=== PATIENT | male | born 1945 | race Caucasian/White ===

== ENCOUNTER 2019-04-03 14:26 | Inpatient (IN) ==
[2019-04-03] MEDS ORDERED: NS 500 ML IV ONE (14:46)
--- NOTE | 2019-04-03 14:52 | PROVIDER DOCUMENTATION ---
HPI-General Adult - General Chief Complaint: Nausea Stated Complaint: NAUSEA,ELEVATED BLOOD SUGAR Time Seen by Provider: 04/03/19 14:33 Source: patient Allergies/Adverse Reactions: Patient Allergies Allergy/AdvReac Type Severity Reaction Status Date / Time Penicillins Allergy Mild RASH Verified 04/12/18 22:47 adhesive AdvReac Mild RASH Verified 04/12/18 22:47 Sulfa (Sulfonamide AdvReac Mild RASH Verified 04/12/18 22:47 Antibiotics) vancomycin AdvReac Mild RASH Verified 04/12/18 22:47 Home Medications: Home Medication List Medication Instructions Recorded Confirmed Last Taken Type Clopidogrel Bisulfate [Plavix] 1 each PO QAM 03/04/18 04/12/18 Unknown History Esomeprazole [Nexium] 1 each PO QAM 03/04/18 04/12/18 Unknown History Famotidine [Pepcid] 1 each PO QAM 03/04/18 04/12/18 Unknown History Metolazone 5 mg PO QAM 03/04/18 04/12/18 03/03/18 09:00 History Metoprolol Tartrate 25 mg PO DAILY 03/04/18 03/04/18 03/03/18 21:00 History Monvantik 3 mg PO QAM 03/04/18 04/12/18 Unknown History Simvastatin 10 mg PO QAM 03/04/18 04/12/18 Unknown History Venlafaxine HCl [Venlafaxine HCl 37.5 mg PO QAM 03/04/18 03/04/18 03/03/18 09:00 History ER] Allopurinol 300 mg PO DAILY 04/12/18 04/12/18 Unknown History Cetirizine HCl [Zyrtec] 10 mg PO DAILY 04/12/18 04/12/18 Unknown History Dutasteride [Avodart] 0.5 mg PO DAILY 04/12/18 04/12/18 Unknown History Insulin Aspart [Novolog Flexpen] 15 unit SQ AC 04/12/18 04/12/18 Unknown History Insulin Glargine [Basaglar] 60 unit SUBQ DAILY 04/12/18 04/12/18 Unknown History Ondansetron HCl [Zofran] 4 mg PO DAILY 04/12/18 04/12/18 Unknown History Oxybutynin Chloride [Oxybutynin 5 mg PO DAILY 04/12/18 04/12/18 Unknown History Chloride ER] Oxycodone HCl/Acetaminophen 1 each PO Q6H PRN PRN 04/12/18 04/12/18 Unknown History [Percocet 10-325 mg Tablet] Torsemide 20 mg PO DAILY 04/12/18 04/12/18 Unknown History - History of Present Illness -Gen Adult Nature of Presenting Problems: Patient is a 73 yowm who complains of generalized weakness, nausea, productive cough with yellow sputum, runny nose, and blood glucose fluctuations x 2 weeks. Also reports SOB when he lies down and some diarrhea. Denies fever, chest pain, or any other symptoms. Also presents with ulcer to right foot x 4 months- dressing changed every other day by home health. He is not currently on abx for this but states the ulcer is improving. Pt is non-toxic in appearance. Review of Systems - Adult - REVIEW OF SYSTEMS - ADULT Constitutional: reports: no symptoms reported. denies: chills, fever Eyes: reports: no symptoms reported Ears, Nose, Mouth & Throat: reports: see HPI, sinus problem Cardiovascular: reports: no symptoms reported. denies: chest pain, edema, palpitations, syncope Respiratory: reports: see HPI, cough. denies: chronic cough, dyspnea on exerti on, excessive sputum production, hemoptysis, pleurisy, shortness of breath, wheezing Gastrointestinal: reports: see HPI, diarrhea, nausea. denies: abdominal pain, vomiting Genitourinary: reports: no symptoms reported Musculoskeletal: reports: see HPI (generalized weakness) Integumentary: reports: see HPI (foot ulcer) Neurological: reports: no symptoms reported. denies: ataxia, dizziness/vertigo, headache/migraines, loss of balance, numbness, paresthesia, seizure, slurred speech, syncope, tremors Psychiatric: reports: no symptoms reported Endocrine: reports: no symptoms reported Hematologic/Lymphatic: reports: no symptoms reported Allergic/Immunologic: reports: no symptoms reported All Other Systems: Reviewed and Negative Past History - Adult - PAST MEDICAL HISTORY-ADULT Review of Records: reports: Nursing Assessment Review, Medications Reviewed, Social history reviewed & non-contributory. Major Childhood Illnesses: reports: denies history Cardiovascular: reports: cardiac disease, CHF, HTN, hyperlipidemia Respiratory: reports: COPD, sleep apnea Genitourinary: reports: denies history Musculoskeletal: reports: denies history Neurological: reports: denies history Endocrine/Immune: reports: Diabetes Diabetes controlled by:: Insulin Dependent - PRIOR SURGERIES/PROCEDURES Surgical/Procedure History: reports: CABG, hernia repair, orthopedic (extremity) , back/neck, other (cataract removal) - IMMUNIZATION STATUS Childhood Immunizations: See Nurse Assessment Flu Vaccine: See Nurse Assessment - FAMILY HISTORY Family History: reviewed, not pertinent - SOCIAL HISTORY Smoking: non-smoker Physical Exam-General - PHYSICAL EXAM-ADULT Initial Vital Signs Reviewed: Yes - CONSTITUTIONAL General Appearance: alert, no apparent distress. negative: lethargic, slow to respond - EYES Eyes: PERRL/EOMI, pink conjunctivae - HEAD, EARS, NOSE, MOUTH & THROAT HENMT: normocephalic/atraumatic, moist mucous membranes - NECK Neck: full range of motion, supple, normal inspection - RESPIRATORY Respiratory: chest non-tender, no pleuratic chest pain, no respiratory distress, no accessory muscle use, wheezing (RUL, all other lung koenig clear to auscultation) - CARDIOVASCULAR Cardiovascular: normal peripheral pulses, regular rate, rhythm, no edema, no gallop, no JVD, no murmur - GASTROINTESTINAL (ABDOMEN) Abdominal Exam: non tender, soft, no pulsatile mass, abnormal bowel sounds (hyperactive in all 4 quadrants), other (obese) - MUSCULOSKELETAL Back Exam: normal inspection Extremity: normal range of motion, non-tender, normal gait, normal capillary refill, other (ulcer right foot) - SKIN Integumentary: normal color, warm/dry. negative: cyanosis, diaphoresis, jaundice, mottled, pallor - NEUROLOGIC Neurologic: director trading II-XII nml as tested, grossly normal, no motor/sensory deficits - PSYCHIATRIC Psych/Mental Status: normal mood/affect, normal thought content, normal thought process, oriented x 3 Progress - PLAN OF CARE/RESULTS Progress/Plan/Lab Results: Vital Signs - 8 hr 04/03/19 14:29 Temperature 97.9 F Pulse Rate 126 H Respiratory Rate 17 Blood Pressure 134/94 O2 Sat by Pulse Oximetry 96 Orders Category Date Time Status Cardiac Monitoring DIRECTED Care 04/03/19 14:44 Active IV Insertion ORDERED Care 04/03/19 14:44 Active Notify MD of + Sepsis Screen NOW Care 04/03/19 14:44 Active Notify Physician As Ordered Care 04/03/19 14:44 Active CHEST-2 VIEWS [RAD] Stat Exams 04/03/19 14:46 Ordered BLOOD CULTURE [BLDCUL] Stat Lab 04/03/19 14:44 Uncollected CBC WITH DIFF [HEME] Stat Lab 04/03/19 14:44 Uncollected CK PROFILE [SP CHEM] Stat Lab 04/03/19 14:44 Uncollected COMPREHENSIVE METABOLIC PANEL [CHEM] Stat Lab 04/03/19 14:44 Uncollected LACTATE, PLASMA [CHEM] Q3H Lab 04/03/19 14:45 Uncollected LACTATE, PLASMA [CHEM] Q3H Lab 04/03/19 17:45 Uncollected LACTATE, PLASMA [CHEM] Q3H Lab 04/03/19 20:45 Uncollected MAGNESIUM [CHEM] Stat Lab 04/03/19 14:45 Uncollected PRO B-NATRIURETIC PEPTIDE Stat Lab 04/03/19 14:46 Uncollected PROTIME WITH INR [COAG] Stat Lab 04/03/19 14:44 Uncollected PTT [COAG] Stat Lab 04/03/19 14:44 Uncollected ROUTINE CULTURE [RM] Stat Lab 04/03/19 14:44 Uncollected TROPONIN T Stat Lab 04/03/19 14:44 Uncollected URINALYSIS W/POSS RFLX CULT [URINALYSIS] Stat Lab 04/03/19 14:44 Uncollected 0.9% Sodium Chloride Inj [Ns] 500 ml Med 04/03/19 14:46 Active IV 999 mls/hr Oxygen Device Stat Oth 04/03/19 14:44 Active EKG [EKG] Stat Ther 04/03/19 14:46 Ordered Pt allergic to pcn and cephalopsporins- reaction is difficulty breathing. 1713- Admitting HPS paged. Pt in agreement with admission plan. Result Diagrams: 04/03/19 15:46 04/03/19 15:46 - XRAY 1 XRAY Study: Chest (IMPRESSION: Left upper lobe pneumonia. Advise follow-up until clear. Electronically signed by Stevenson Cisse 04/03/2019 3:23 PM) 2 XRAY: Right XRAY Study: Foot (IMPRESSION: No definite evidence of osteomyelitis. Disuse osteoporosis. Other chronic findings as described above. Electronically signed by Stevenson Cisse 04/03/2019 3:27 PM) - CONSULTS/PCP/HOSPITALIST Notification #1 *Consult/PCP/Hospitalist*: Summer, [facility] [employer] Time Discussed: 17:23 Reason/Comments: admission- pne, acute kidney injury, A. Fib with RVR Consult Disposition: Admit (to Dr. Cline) Departure - Departure Date of Disposition Decision: 04/03/19 Time of Disposition Decision: 17:00 DIAGNOSIS: Acute kidney injury, Atrial fibrillation with RVR Sepsis Qualifiers: Sepsis type: sepsis due to unspecified organism Qualified Code(s): A41.9 - Sepsis, unspecified organism Pneumonia Qualifiers: Pneumonia type: due to unspecified organism Laterality: left Lung location: upper lobe of lung Qualified Code(s): J18.1 - Lobar pneumonia, unspecified organism Disposition: ADMITTED INPATIENT 09 Certified Medical Emergency: Emergent Condition: Serious Referrals and Follow-Ups: None,PCP [Primary Care Provider] - - Critical Care Note This patient required my direct & personal management of CC.: No Attestation - Physician/ LILLIAN Attestation Patient care was provided by Advanced Practice Provider:: Yes Advanced Practice Provider:: Danii Peter Advanced Practice Provider documentation review:: The Mid-level provider documentation, treatment plan and medical decision making was reviewed by the physician who agrees with all treatment and medical decision making by the P. The physician spent face to face time with patient:: No Advanced Practice Provider documentation review:: Supervising physician onsite and consulted in the evaluation and care of this patient. The physician did not have a face to face encounter with the patient. Sepsis: Tissue Perfusion Assmt - Physical Exam Assessment Date: 04/03/19 Time Assessment Initialized: 17:25 Vital Signs: Last Vital Signs Temp 97.9 F 04/03/19 14:29 Pulse 126 H 04/03/19 14:29 Resp 17 04/03/19 14:29 BP 134/94 04/03/19 14:29 Pulse Ox 96 04/03/19 14:29 Height 5 ft 6 in Weight 225 lb Lung Sounds:: lungs clear Heart Sounds:: Irregular Capillary Refill Time: Less Than 2 Seconds Peripheral Pulse Evaluation:: radial (R): 3+, radial (L): 3+ Skin Exam:: pink - Impression Impression:: Tissue Perfusion Adequate - Plan Plan:: See Orders
--- NOTE | 2019-04-03 15:25 | Diag Imaging Result Doc PS360 ---
EXAM: CHEST-2 VIEWS 04/03/2019 HISTORY: cough, weakness TECHNIQUE: AP upright and lateral sitting at 1519 COMMENT: There is increased opacity in the lingula silhouetting the left heart border. This was not the case on 04/12/2018. IMPRESSION: Left upper lobe pneumonia. Advise follow-up until clear. Electronically signed by Stevenson Cisse 04/03/2019 3:23 PM
--- NOTE | 2019-04-03 15:29 | Diag Imaging Result Doc PS360 ---
EXAM: FOOT COMPLETE RIGHT 04/03/2019 HISTORY: right foot ulcer/infection TECHNIQUE: Right foot three views COMMENT: There is marked patchy osteoporosis. There is dorsal and plantar spurring of the calcaneus. There are degenerative changes in the first interphalangeal joint. There are calcifications in the proximal Achilles tendon which may be due to previous trauma. There is an apparent heel ulcer. There are no previous studies available for comparison. No definite evidence of bony erosion is present to suggest osteomyelitis. There is some soft tissue calcification or possibly hyperdense topical medication in association with the ulcer. The latter is more likely as there does appear to be something on the skin of the heel on the medial aspect. IMPRESSION: No definite evidence of osteomyelitis. Disuse osteoporosis. Other chronic findings as described above. Electronically signed by Stevenson Cisse 04/03/2019 3:27 PM
[2019-04-03] MEDS ORDERED: LEVAQUIN 750 MG in NS 150 ML IV ONE (15:36)
[2019-04-03 16:00] LABS: URINE SOURCE CLEAN CATCH
[2019-04-03 16:06] LABS: BASO# 0.02 X1000 (0.0-0.2); BASO% 0.2 % (0.0-0.8); EOS# 0.12 X1000 (0.0-0.7); EOS% 1.5 % (0.0-10.0); HEMATOCRIT 40.8 % (42.0-52.0); HEMOGLOBIN 12.9 g/dL (14.0-18.0); IMM GRAN# 0.02 X1000 (0.0-0.04); IMM GRAN% 0.2 % (0.0-0.5); LYMPH# 1.62 X1000 (1.2-3.4); LYMPH% 20.2 % (20.5-51.1); MCHC 31.6 g/dL (33-37); MCV 88.5 FL (81-99); MONO# 0.69 X1000 (0.11-0.59); MONO% 8.6 % (1.7-9.3); MPV 12.1 FL (7.4-10.4); NEUT# 5.54 X1000 (1.4-6.5); NEUT% 69.3 % (42.2-75.2); PLT 273 X1000 (130-400); RBC 4.61 XMIL (4.7-6.1); RDW 13.7 % (11.5-14.5); WBC 8.01 X1000 (4.8-10.8)
[2019-04-03 16:07] LABS: BILIRUBIN URINE NEGATIVE (NEGATIVE); BLOOD URINE TRACE (NEGATIVE); COLOR YELLOW; GLUCOSE URINE 100 mg/dL (NEGATIVE); KETONE URINE NEGATIVE (NEGATIVE); LEUKOCYTES URINE SMALL (NEGATIVE); NITRITE URINE NEGATIVE (NEGATIVE); PROTEIN URINE NEGATIVE (NEGATIVE); SP GRAVITY URINE 1.009; TURBIDITY URINE CLEAR (CLEAR); UROBILINOGEN URINE NORMAL (NORMAL)
[2019-04-03 16:08] LABS: UR EPITHELIAL CELLS <10 /HPF (<10); URINE BACTERIA 1+ /HPF; URINE RBC <10 /HPF (<10); URINE WBC 20-40 /HPF (<10)
[2019-04-03 16:18] LABS: INR 1.06; PROTIME 14.7 Seconds (11.0-16.0)
[2019-04-03 16:19] LABS: PTT 38.9 Seconds (22.3-41.8)
[2019-04-03 16:45] LABS: ALBUMIN 4.3 g/dL (3.5-5.0); CALCIUM 9.9 mg/dL (8.8-10.2); CREATININE 2.2 mg/dL (0.7-1.2); POTASSIUM 4.5 mmol/L (3.5-5.1); TOTAL BILIRUBIN 0.34 mg/dL (0.20-1.00); TOTAL PROTEIN 8.6 g/dL (6.3-8.3)
[2019-04-03 16:46] LABS: MAGNESIUM 1.9 mg/dL (1.5-2.7)
[2019-04-03] MEDS ORDERED: CARDIZEM IV ONE (17:00)
[2019-04-03] MEDS ORDERED: TYLENOL PO PRN (17:56)
--- NOTE | 2019-04-03 18:16 | HISTORY AND PHYSICAL ---
ADDENDUM: The patient seen and examined by me [id number]. All the laboratory, vital signs and images were reviewed. Patient presented to the emergency department with chief complaint of generalized weakness, dizziness and not feeling well for the past 2 weeks, he has a history of coronary artery disease status post CABG, CHF, hypertension, hyperlipidemia, history of CVA, COPD, diabetes, chronic pain, gout and sleep apnea, as per the patient he lives by himself but he has a daughter who lives in [place] and a sister that lives here in [place], [place]. He is not complaining of chest pain but he is feeling shortness of breath and chills as well. He does have some lower extremity ulcers and he has a dressing on his left foot, we will go ahead and evaluate this with the wound nurse/wound care, a foot x-ray did not show any osteomyelitis, diffuse osteoporosis. Chest x-ray showed left upper lobe pneumonia and this patient is having atrial fibrillation with RVR, he will be placed on the Cardizem drip, he will be placed on anticoagulation, he does not have a history of atrial fibrillation or bleeding disorder, no recent surgery or brain bleed, he will go to the [facility], he will receive antibiotics as well, probably I will consult Cardiology Department in the morning if I have to, I agree with the rest of the nurse practitioner's assessment and plan, we will ask for laboratory including TSH, the patient seems to be stable. Blood culture and urine culture has been ordered. cc: Nomi Guillen MD
[2019-04-03] MEDS ORDERED: PERCOCET-10 PO PRN (18:23)
[2019-04-03] MEDS: CARDIZEM 125/NS 125 MG/125 ML IVPB IV SCH (18:43)
--- NOTE | 2019-04-03 20:22 | HISTORY AND PHYSICAL ---
OCCUPATIONAL REHABILITATION AIDE: Dr. Del Valle. CHIEF COMPLAINT: Is weakness. HISTORY OF PRESENT ILLNESS: Mr. Coleman is a 73-year-old male with a past history of coronary artery disease status post coronary artery bypass graft, congestive heart failure, hypertension, hyperlipidemia, CVA, COPD and poorly controlled diabetes. The patient states that he has been having increasing weakness over the past 2 weeks with a cough and fever when chills. Patient has been short of breath and had some dizziness. His cough is productive with yellow sputum noted. Patient denies any chest pain. Patient complains of some palpitations. Patient denies any nausea or vomiting or abdominal pain. The patient has a foot wound noted to the right heel area with a dressing intact and the patient states this is changed by [facility] service. The patient has multiple small lesions all over the bilateral lower extremities and the arms. All these lesions are scabbed over. Not draining. The patient presents to the ER today with new onset atrial fibrillation, RVR rate of 110s to 120s. Chest x-ray done in the ER also shows left upper lobe pneumonia. A foot x-ray was done to the right foot and shows no evidence of osteomyelitis. In the ER labs show a normal white blood cell count of 8.01, a BUN of 52, creatinine of 2.2, elevated glucose of 283, elevated proBNP of 1672 and elevated lactate level 2.4. Urinalysis also shows a small amount of leukocytes and positive white blood cell count of 20- 40 with 1+ bacteria. Lung sounds are diminished and patient is in no acute distress at present time. He is on room air. Abdomen is round. Patient states he does have chronic constipation, has to take MiraLAX daily. Bowel sounds are present. Patient said he had vomiting yesterday. Patient denies any difficulty urinating, any burning or pain with urination, patient denies any frequency of urination. PAST MEDICAL HISTORY: Coronary artery disease, congestive heart failure, hypertension, hyperlipidemia, CVA, COPD, sleep apnea, diabetes mellitus, chronic pain, gout. PAST SURGICAL HISTORY: Three-vessel coronary artery bypass graft, bilateral cataract surgery, hiatal hernia repair, low back surgery, leg surgery secondary traumatic fracture of the femur, tibia and fibula, right wrist surgery secondary to fracture, bilateral endarterectomy. FAMILY HISTORY: Mother is positive for passing away secondary to meningitis when he was 9 months old, father from an [place] at age of 57. He does have a brother who has history diabetes, he states he has a sister with arthritis and she often gets pancreatitis. SOCIAL HISTORY: Patient lives in [place]. He is retired from the [employer]. He is disabled at this time, patient does live alone, denies any alcohol, tobacco, or drug dependence. ALLERGIES: Penicillin, vancomycin, sulfa, adhesive tape, steroids. CURRENT MEDICATIONS: Allopurinol 300 mg p.o. daily, Zyrtec 10 mg p.o. daily, Plavix 75 mg p.o. q.a.m., Avodart 0.5 mg p.o. daily, Nexium 40 mg p.o. q.a.m., famotidine 20 mg p.o. q.a.m., NovoLog insulin 15 units subcu a.c., insulin glargine 60 units subcu daily, metolazone 5 mg p.o. q.a.m., metoprolol 25 mg p.o. daily, Movantik 3 mg p.o. q.a.m., Zofran 4 mg p.o. daily, oxybutynin chloride 5 mg p.o. daily, Percocet 10/325 one tablet p.o. q.6 hours p.r.n. pain, simvastatin 10 mg p.o. q.a.m., torsemide 20 mg p.o. daily, venlafaxine 37.5 mg p.o. q.a.m. LABS AND DIAGNOSTICS: White blood cell count 8.01, hemoglobin 12.9, hematocrit 40.8, platelet count 273,000. PT 14.7, INR 1.06, PTT 38.9, sodium 136, potassium 4.5, chloride 92, carbon dioxide 28, BUN 52, creatinine 2.2, estimated GFR is 29, glucose is 283, calcium is 9.9, magnesium is 1.9, AST is 17, ALT is 8, alkaline phosphatase 58, creatine kinase 78, troponin is less than 0.01, ProBNP is 1672, plasma lactate is 2.4. Urinalysis shows positive glucose, trace blood, small amount of leukocytes, white blood cell count 20 to 40 and 1+ bacteria. Foot x-ray of the right foot shows no deformities, evidence of osteomyelitis, diffuse osteoporosis. Chest x-ray shows left upper lobe pneumonia. REVIEW OF SYSTEMS: A 12 point review of systems was obtained all negative except what is stated above in HPI. PHYSICAL EXAMINATION: VITAL SIGNS: Temperature 97.9 degrees, heart rate 119, respiratory rate 29, BP 125/90, O2 saturations 95% on room air, height 5 feet 6, weight is 225 pounds. GENERAL: This is a 73-year-old male lying in the ER stretcher in no acute distress at present time. He is able to answer all questions appropriately and follow all commands. HEENT: Atraumatic, normocephalic. Pupils equal, round, reactive. Mucous membranes are moist. NECK: Supple and no lymphadenopathy. Trachea is midline. No JVD. No bruits. CV: Atrial fibrillation on the monitor 110s to 120s. No murmurs, gallops, or rubs appreciated. S1, S2 noted. RESPIRATORY: Lung sounds are clear but diminished. Equal chest excursion. Respirations are nonlabored, no accessory muscle usage. ABDOMEN: Round, nontender. Bowel sounds are present. NEUROLOGIC: The patient is awake, alert and oriented, able to follow all commands. Cranial nerves intact. MUSCULOSKELETAL: Full distal strength noted, no abnormalities, no deformities. EXTREMITIES: No clubbing. There is some cyanosis noted to the fingertips, bilateral lower leg edema 1+, DP and PT pulses are present and palpable. There is multiple wounds noted to the extremities, wounds are scabbed over. There is a dressing noted to the right heel is intact. SKIN: Warm, dry. No diaphoresis. There is multiple leg ulcers and they are scabbed over and a couple of lesions noted to the bilateral arms that have scabs on them. There is a dressing noted to the right heel that is intact. ASSESSMENT AND PLAN: 1. Atrial fibrillation, rapid ventricular response. We will admit this patient to the CIC unit and place him on quality assurance monitor chassis and place him on a Cardizem drip to keep heart rate less than 100, start the patient on Lovenox 1 mg/kg b.i.d. We will get a echocardiogram in the morning, we will follow up with serial CK and troponins, get a EKG in the morning, possibly consult Cardiology tomorrow for further evaluation. 2. Pneumonia. Place this patient on Levaquin. He is allergic to penicillin, vancomycin and sulfa drugs. 3. Urinary tract infection. Patient is started on Levaquin intravenous. 4. Acute kidney injury. Patient was given intravenous fluid bolus in the emergency room, patient is on torsemide at home. This could be chronic kidney disease not for sure last creatinine we have is 1.2, today last was 2.2. There is a couple of times back in the past where I can see where his creatinine was elevated in the 2 range there was 1 on 03/04/2018 where it was 2.6. We will continue to monitor this. Repeat labs in the morning. 5. Congestive heart failure. Patient has an echocardiogram ordered for tomorrow. His proBNP was elevated today. We will restart some of his home medications and monitor his heart with quality assurance monitor chassis on CIC unit. 6. Diabetes mellitus. We are going to put this patient on sliding scale insulin and check fingerstick blood sugar AC&HS 7. Right heel wound. We will consult wound care management and go with their recommendations. 8. Deep vein thrombosis prophylaxis. We placing this patient on Lovenox 1 mg/kg b.i.d. 9. Gastrointestinal prophylaxis. I placed this patient on omeprazole 40 mg daily. 10. Chronic obstructive pulmonary disease. Place this patient on duo nebs treatments. 11. Sleep apnea. Will continue patient's home BiPAP at night as needed. 12. Hypertension. We will continue this patient's home hypertension medications. 13. Coronary artery disease status post 3 vessel coronary bypass graft. We will place this patient on the CIC unit and place him on telemetry. We will obtain vital signs every [address] him on strict I and O start him a diabetic diet, will repeat labs in the morning and chest x-ray. Blood cultures were obtained in the emergency room. Patient is started on Levaquin for pneumonia and Cardizem drip for his atrial fibrillation. Dictated by JULIA Estrada for Nomi Guillen MD cc: Nomi Guillen MD MTDD
[2019-04-03] MEDS: LEVAQUIN 750 MG/D5W 750 MG/150 ML IVPB IV SCH (21:33)
[2019-04-03] MEDS: LOVENOX SUBQ SCH (21:33)
[2019-04-03] MEDS: HUMULIN R SUBQ SCH (21:34)
[2019-04-03] MEDS: DUONEB (A & A) INH SCH ×2 (22:29→23:14)
[2019-04-04] MEDS: DUONEB (A & A) INH SCH ×6 (03:04→22:40)
[2019-04-04 05:41] LABS: BASO# 0.02 X1000 (0.0-0.2); BASO% 0.4 % (0.0-0.8); EOS# 0.19 X1000 (0.0-0.7); EOS% 3.5 % (0.0-10.0); HEMATOCRIT 37.9 % (42.0-52.0); HEMOGLOBIN 11.8 g/dL (14.0-18.0); IMM GRAN# 0.02 X1000 (0.0-0.04); IMM GRAN% 0.4 % (0.0-0.5); INR 1.23; LYMPH# 1.99 X1000 (1.2-3.4); LYMPH% 36.2 % (20.5-51.1); MCH 28.4 PG (27-31); MCHC 31.1 g/dL (33-37); MCV 91.1 FL (81-99); MONO# 0.57 X1000 (0.11-0.59); MONO% 10.4 % (1.7-9.3); MPV 12.4 FL (7.4-10.4); NEUT% 49.1 % (42.2-75.2); PLT 209 X1000 (130-400); PROTIME 16.4 Seconds (11.0-16.0); RBC 4.16 XMIL (4.7-6.1); RDW 13.7 % (11.5-14.5); WBC 5.49 X1000 (4.8-10.8)
--- NOTE | 2019-04-04 06:11 | Diag Imaging Result Doc PS360 ---
EXAM: CHEST-PORTABLE HISTORY: pna TECHNIQUE: Portable chest single view COMPARISON: 04/03/2019 FINDINGS: Poor inspiratory effort. Heart is mildly prominent. There are sternal wires and surgical clips. There is atelectasis or infiltrate in the lingular segment of left upper lobe. Tiny left pleural effusion. IMPRESSION: No interval improvement. Electronically signed by Floyd Toure 04/04/2019 6:09 AM
[2019-04-04] MEDS: HUMULIN R SUBQ SCH ×4 (06:13→20:42)
[2019-04-04] MEDS: PRILOSEC PO SCH (06:14)
[2019-04-04 06:39] LABS: ALB/GLOB RATIO 1.2; ALBUMIN 3.6 g/dL (3.5-5.0); CALCIUM 8.7 mg/dL (8.8-10.2); MAGNESIUM 1.9 mg/dL (1.5-2.7); PHOSPHORUS 3.9 mg/dL (2.7-4.5); POTASSIUM 4.3 mmol/L (3.5-5.1); TOTAL BILIRUBIN 0.35 mg/dL (0.20-1.00); TOTAL PROTEIN 6.7 g/dL (6.3-8.3)
[2019-04-04 06:54] LABS: HEMOGLOBIN A1C 10.3 % (4.8-6.0)
[2019-04-04] MEDS: LOVENOX SUBQ SCH ×3 (08:30→21:43)
[2019-04-04] MEDS: SYNTHROID PO SCH (08:30)
[2019-04-04] MEDS: EFFEXOR XR PO SCH (08:30)
[2019-04-04] MEDS: TRICOR PO SCH (08:31)
[2019-04-04] MEDS: ZOCOR PO SCH (08:31)
[2019-04-04] MEDS: ZYLOPRIM PO SCH (08:31)
[2019-04-04] MEDS: LANTUS INSULIN SUBQ SCH (08:31)
[2019-04-04] MEDS: MIRALAX PO SCH ×3 (08:31→22:08)
[2019-04-04] MEDS: PLAVIX PO SCH (08:31)
--- NOTE | 2019-04-04 08:42 | PROGRESS NOTE ---
DATE: 04/04/2019 SUBJECTIVE: The patient feels better today. He is not complaining of chest pain or shortness of breath. No dizziness. His heart rate is better controlled with diltiazem drip. Cardiology Department has been consulted. OBJECTIVE: Vital Signs: Temperature 98.1 degrees, pulse 86, respiratory rate 15, blood pressure 90/56, oxygen saturation 97% on 2 L of nasal cannula. HEENT: Head normocephalic. No trauma. PERRLA. Neck: Supple. No JVD. No masses. Central trachea. Chest: Clear to auscultation. Some crepitus at the bases. Cardiovascular: Irregularly irregular rate and rhythm. Abdomen: Soft, nontender, nondistended. No hepatosplenomegaly. Extremities: No clubbing. Bilateral leg edema 1+. He has multiple superficial wounds noted on his extremities, and also he has a dressing on the right heel. Neurological: Alert and oriented x3. No deficit. LABORATORY DATA: WBC 5.4, hemoglobin 11.8, hematocrit 37.9, platelets 209,000. Sodium 139, potassium 4.9, chloride 96, bicarbonate 26, BUN 54, creatinine 2, glucose 256, calcium 8.7. Troponins negative x3. TSH 2.1. ASSESSMENT AND PLAN: 1. Atrial fibrillation with rapid ventricular response. This patient has been placed in the [facility]. Will continue with Cardizem drip. Cardiology Department has been consulted. Will continue with the same management. 2. History of congestive heart failure. Pending echocardiogram. ProBNP was elevated. I will hold the diuretics for just today due to his acute on chronic kidney disease. He is not complaining of shortness of breath. 3. Pneumonia. This patient has been placed on Levaquin. Continue with the same management. 4. Possible urinary tract infection. Urine culture has been negative so far, as well as blood culture. Will continue with the same management. 5. Acute on chronic kidney disease. Looks a bit better compared with yesterday. Will continue to monitor. 6. History of congestive heart failure. ProBNP is a little bit elevated. Pending echocardiogram. 7. Type 2 diabetes. I have placed this patient back on his home dose of Lantus. Will continue with sliding scale insulin and pattern of blood sugar. 8. Right heel wound. Wound Care has been consulted. Will wait for recommendations. 9. Deep vein thrombosis prophylaxis. This patient meets criteria for anticoagulation. I have placed this patient on Lovenox twice a day. 10. Gastrointestinal prophylaxis with omeprazole. 11. History of chronic obstructive pulmonary disease, not in exacerbation. 12. Sleep apnea. Continue with the same management. 13. Hypertension. Will monitor. Right now, he is having some episodes of borderline low blood pressure. 14. History of coronary artery disease, status post coronary artery bypass graft. Continue with telemetry. Continue with strict intake and output. Chest x-ray is about the same compared with yesterday. cc: Nomi Guillen MD
[2019-04-04] MEDS ORDERED: PERCOCET-5 PO PRN (11:37)
[2019-04-04] MEDS: PERCOCET-5 PO PRN ×2 (11:50→19:36)
--- NOTE | 2019-04-04 12:47 | CARDIOLOGY CONSULTATION ---
DATE: 04/04/2019 CHIEF COMPLAINT: Weakness and shortness of breath. HISTORY OF PRESENT ILLNESS: Mr. Coleman is a 73-year-old white male with a history of coronary disease followed by Dr. Nieto in [place]. He presented for around 2 weeks of generalized weakness, as well as cough and possible subjective fevers. At times, he has noted some palpitations but does not seem to currently be having them. He has no previous history of atrial fibrillation. He presently has no acute complaints lying in bed with echocardiogram to be performed. PAST MEDICAL HISTORY: Significant for 1. Coronary disease with history of bypass grafting. I do not have records of this study. 2. History of mild systolic heart failure. Last ejection fraction estimated to be 60% in 2017 with EFs in the 45 to 50 percent range back in 2010 and 2011. 3. Hypertension. 4. Obstructive sleep apnea with significant obesity. 5. Reflux disease. 6. TIA. 7. Hyperlipidemia. 8. Peripheral vascular disease. SOCIAL HISTORY: Lives in [place]. He is retired from the [employer]. Disabled. No current alcohol, tobacco or illicit drugs. FAMILY HISTORY: Mother had a history of meningitis, passing away due to this when he was a child. Father of an [place] at age 57. REVIEW OF SYSTEMS: A 10 system review of systems is negative except for those mentioned in HPI. PHYSICAL EXAMINATION: Vital Signs: Afebrile. Heart rate of 91. Most recent blood pressure is 90/56. His presenting blood pressure was 134/94. General: He is in no acute distress. HEENT: Oropharynx is moist. Poor dentition. Eye examination shows pink conjunctivae, white sclerae. Neck: Examination shows no obvious thyromegaly or thyroid tenderness. Cardiovascular: He sounds to be in an irregularly irregular rhythm. He has no obvious murmurs. He has no S3. He has no lower extremity edema. Chest: Sounds relatively clear from the anterior and axillary positions. He has no increased work of breathing. Abdomen: Soft, nontender, nondistended. He has no obvious organomegaly. Skin: Warm and dry throughout without any rashes. Neurological: He is moving all extremities well. He has no lateralizing deficits. PERTINENT DATA: His chest x-ray demonstrates sternal wires. Left upper lobe infiltrate with air bronchograms suggesting a pneumonia. His EKG on the at 16:58 shows rapid atrial fibrillation, rate of 134 beats per minute. Subsequent EKG occurring on the at 6:51 shows rate controlled atrial fibrillation, rate of 85 beats per minute. Lab data shows a white count of 5.5, hematocrit 37, platelet count is 209,000. INR 1.2. Sodium 139, potassium 4.3, BUN 54. Creatinine is 2. TSH is 2.1. Cardiac enzymes negative. ASSESSMENT: Mr. Coleman is a 73-year-old male with a history of coronary disease who presented with what appears to be a pneumonia and rapid atrial fibrillation. PLAN: His CHADS-VASc score is significantly elevated with his history of hypertension, TIA, and peripheral vascular disease. He would definitely benefit from anticoagulants. The risks, benefits, and alternatives have been explained to him and he agrees to proceed. I agree with weight based Lovenox initially and would likely transition him over to Eliquis which would be a 5 mg b.i.d. dose based on his age, weight, and kidney function. We are pending his echocardiogram results. Presently, I would pursue a rate control method. cc: Hayden Lewis MD MTDD
[2019-04-04] MEDS: ZOFRAN IV PRN ×2 (16:38→21:25)
--- NOTE | 2019-04-04 18:25 | ECHO REPORT ---
ORDER DATE: 04/04/2019 PROCEDURE: 2D echocardiogram technically suboptimal study. Poor acoustic window. Optison was used to assess left ventricular systolic function. MEASUREMENTS AND FINDINGS: 1. Aortic diameter was 3.4 cm. 2. Left atrium 5 cm. Other measurements of the left ventricular cavity size could not be assessed. Technically suboptimal study. 3. Aortic valve leaflets were sclerosed, trileaflet. 4. Pulmonic valve was normal. 5. Mitral valve leaflets not well visualized. 6. Tricuspid valve not well visualized. By Doppler studies there is mild mitral regurgitation. Peak velocity across the aortic valve less than 2 m/sec. There is no aortic stenosis or regurgitation. Peak velocity across the tricuspid valve was 2.8 m/sec. 7. Pulmonary artery systolic pressure 42 mmHg. Normal left ventricular cavity size. Estimated ejection fraction of 60% to 65%. Atrial fibrillation was noted. 8. There is no pericardial effusion. cc: Homer Vang MD
[2019-04-04] MEDS: LEVAQUIN 750 MG/D5W 750 MG/150 ML IVPB IV SCH (19:36)
[2019-04-05] MEDS: PERCOCET-5 PO PRN ×4 (00:26→20:18)
[2019-04-05] MEDS: DUONEB (A & A) INH SCH ×6 (04:44→23:34)
[2019-04-05] MEDS: CARDIZEM 125/NS 125 MG/125 ML IVPB IV SCH ×2 (05:31→18:45)
[2019-04-05 05:37] LABS: BASO# 0.03 X1000 (0.0-0.2); BASO% 0.5 % (0.0-0.8); EOS% 3.5 % (0.0-10.0); HEMATOCRIT 36.8 % (42.0-52.0); HEMOGLOBIN 11.4 g/dL (14.0-18.0); LYMPH# 1.53 X1000 (1.2-3.4); LYMPH% 26.9 % (20.5-51.1); MCH 28.1 PG (27-31); MCV 90.9 FL (81-99); MONO% 10.6 % (1.7-9.3); MPV 11.7 FL (7.4-10.4); NEUT# 3.32 X1000 (1.4-6.5); NEUT% 58.5 % (42.2-75.2); PLT 207 X1000 (130-400); RBC 4.05 XMIL (4.7-6.1); RDW 13.8 % (11.5-14.5); WBC 5.68 X1000 (4.8-10.8)
[2019-04-05 06:14] LABS: CREATININE 2.4 mg/dL (0.7-1.2); POTASSIUM 4.4 mmol/L (3.5-5.1)
[2019-04-05] MEDS: HUMULIN R SUBQ SCH ×4 (06:21→20:10)
[2019-04-05] MEDS: PRILOSEC PO SCH (06:21)
--- NOTE | 2019-04-05 08:34 | PROGRESS NOTE ---
DATE: 04/05/2019 SUBJECTIVE: This patient feels better. He is not complaining of chest pain or shortness of breath. No dizziness. His heart rate is better controlled. He is still on the Cardizem drip. Cardiology department is on board. I will wait for recommendations. OBJECTIVE: Vital Signs: Temperature 98.4 degrees, pulse 89, respiratory rate 20, blood pressure 126/74, oxygen saturation 98 on 2 L of nasal cannula. HEENT: Head normocephalic. No trauma. PERRLA. Neck: Supple. No JVD. No masses. Central trachea. Chest: Clear to auscultation. Some crepitus at the bases. Cardiovascular: Irregularly irregular rate and rhythm. Abdomen: Soft, nontender, nondistended. No hepatosplenomegaly. Protuberant. Extremities: No clubbing. Bilateral leg edema, 1+. He has multiple superficial wounds noted on his extremities and, also, he has a dressing on his left heel. Neurological Examination: Alert. He is oriented. No focal deficits at this moment but generalized weakness. Laboratory: WBC 5.6, hemoglobin 11.4, hematocrit 36.8, platelets 207,000. Sodium 139, potassium 4.4, chloride 97, bicarbonate 29, BUN 56, creatinine 2.4, glucose 218, calcium 9. ASSESSMENT AND PLAN: 1. Atrial fibrillation with rapid ventricular response. Continue with the same management for now. Cardiology department is on board. The rate is better controlled. We will monitor. He is still on the Cardizem drip. 2. History of congestive heart failure. Echocardiogram has been done. He has an ejection fraction of 60 to 65 percent. Also, he has some pulmonary hypertension, probably diastolic dysfunction. 3. Pneumonia. Continue with levofloxacin. Continue with the same management. 4. Possible urinary tract infection. We have a positive urine culture that showed Morganella morganii that is actually sensitive to levofloxacin so we will continue with antibiotics. Also, he has a right foot culture that showed gram-negative rods. For now, we will continue with the same management. He is allergic to penicillin, sulfa, and vancomycin. 5. Type 2 diabetes. I put this patient back on his home dose of Lantus. We will continue to monitor with a sliding scale insulin and pattern of blood sugar. His blood sugar still is slightly above 200. 6. Right heel wound. Wound care has been consulted. We will monitor and wait for recommendations. 7. Deep vein thrombosis prophylaxis. This patient meets criteria for anticoagulation. Continue with Lovenox twice a day. 8. Gastrointestinal prophylaxis with omeprazole. 9. History of chronic obstructive pulmonary disease, not in exacerbation. 10. Sleep apnea. Continue with the same management. 11. Hypertension, stable. 12. History of coronary artery disease, status post coronary artery bypass graft. Continue with telemetry. Strict ins an outs. cc: Nomi Guillen MD
[2019-04-05] MEDS: EFFEXOR XR PO SCH (08:54)
[2019-04-05] MEDS: MOVANTIK PO SCH (08:54)
[2019-04-05] MEDS: DEMADEX PO SCH ×2 (08:54→20:10)
[2019-04-05] MEDS: LOVENOX SUBQ SCH ×2 (08:54→20:36)
[2019-04-05] MEDS: LANTUS INSULIN SUBQ SCH (08:54)
[2019-04-05] MEDS: TRICOR PO SCH (08:55)
[2019-04-05] MEDS: ZYLOPRIM PO SCH (08:55)
[2019-04-05] MEDS: SYNTHROID PO SCH (08:55)
[2019-04-05] MEDS: PLAVIX PO SCH (08:55)
[2019-04-05] MEDS: ZOCOR PO SCH (08:55)
[2019-04-05] MEDS ORDERED: NEXIUM PO SCH (09:00)
[2019-04-05] MEDS: ZOFRAN IV PRN ×2 (10:35→19:13)
[2019-04-05] MEDS: MIRALAX PO SCH (17:52)
--- NOTE | 2019-04-05 18:36 | CARDIOLOGY PROGRESS NOTE ---
DATE: 04/05/2019 SUBJECTIVE: Mr. Coleman reports some occasional rare palpitations. PHYSICAL EXAMINATION: Vital Signs: He is afebrile. Heart rate of 99, blood pressure 141/71. General: He is in no acute distress. Cardiovascular: He is in an irregularly irregular rate controlled rhythm. He has no murmurs, no S3, no lower extremity edema. Chest: Clear bilaterally. No increased work of breathing. PERTINENT DATA: His sodium is 139, potassium is 4.4, BUN 56, creatinine 2.4. His hematocrit is 36.8. ASSESSMENT: Mr. Coleman is a 73-year-old male who presents with a pneumonia and is found to have atrial fibrillation. PLAN: I will initiate metoprolol. Continue him on the Lovenox. He had an echocardiogram checked yesterday that demonstrated a preserved ejection fraction. For the time being, we will attempt to achieve rate control. cc: Hayden Lewis MD
[2019-04-05] MEDS: LEVAQUIN 750 MG/D5W 750 MG/150 ML IVPB IV SCH (20:09)
[2019-04-05] MEDS: LOPRESSOR PO SCH (20:10)
[2019-04-06] MEDS: PERCOCET-5 PO PRN ×4 (00:21→22:49)
[2019-04-06] MEDS: LOPRESSOR PO SCH ×4 (01:11→21:07)
[2019-04-06] MEDS: ZOFRAN IV PRN ×3 (02:10→15:19)
[2019-04-06] MEDS: DUONEB (A & A) INH SCH ×5 (03:20→19:24)
[2019-04-06 05:38] LABS: BASO# 0.02 X1000 (0.0-0.2); BASO% 0.3 % (0.0-0.8); EOS# 0.12 X1000 (0.0-0.7); EOS% 1.8 % (0.0-10.0); HEMATOCRIT 35.6 % (42.0-52.0); HEMOGLOBIN 11.2 g/dL (14.0-18.0); IMM GRAN# 0.02 X1000 (0.0-0.04); IMM GRAN% 0.3 % (0.0-0.5); LYMPH% 21.4 % (20.5-51.1); MCH 28.4 PG (27-31); MCHC 31.5 g/dL (33-37); MCV 90.1 FL (81-99); MONO# 0.64 X1000 (0.11-0.59); MONO% 9.8 % (1.7-9.3); MPV 12.4 FL (7.4-10.4); NEUT# 4.33 X1000 (1.4-6.5); NEUT% 66.4 % (42.2-75.2); PLT 210 X1000 (130-400); RBC 3.95 XMIL (4.7-6.1); RDW 13.8 % (11.5-14.5); WBC 6.53 X1000 (4.8-10.8)
[2019-04-06] MEDS: HUMULIN R SUBQ SCH ×4 (06:01→21:07)
[2019-04-06] MEDS: PRILOSEC PO SCH (06:02)
[2019-04-06 06:14] LABS: CALCIUM 9.1 mg/dL (8.8-10.2); POTASSIUM 4.5 mmol/L (3.5-5.1)
--- NOTE | 2019-04-06 07:36 | Diag Imaging Result Doc PS360 ---
EXAM: CHEST-PORTABLE HISTORY: dyspnea TECHNIQUE: Portable chest single view COMPARISON: 04/04/2019 FINDINGS: Poor inspiratory effort. The heart is not enlarged. Sternal wires and surgical clips. Mild pulmonary edema. Atelectasis or infiltrates in the lingular segment of the upper lobe. Questionable small left effusion. The overall appearance is similar to the prior exam. IMPRESSION: No interval improvement. Electronically signed by Floyd Toure 04/06/2019 7:34 AM
[2019-04-06] MEDS: MIRALAX PO SCH (08:16)
[2019-04-06] MEDS: MOVANTIK PO SCH (08:17)
[2019-04-06] MEDS: CARDIZEM 125/NS 125 MG/125 ML IVPB IV SCH (08:17)
[2019-04-06] MEDS: SYNTHROID PO SCH (08:18)
[2019-04-06] MEDS: ZYLOPRIM PO SCH (08:18)
[2019-04-06] MEDS: PLAVIX PO SCH (08:18)
[2019-04-06] MEDS: ZOCOR PO SCH (08:19)
[2019-04-06] MEDS: EFFEXOR XR PO SCH (08:19)
[2019-04-06] MEDS: TRICOR PO SCH (08:19)
[2019-04-06] MEDS: LANTUS INSULIN SUBQ SCH (08:20)
--- NOTE | 2019-04-06 08:29 | PROGRESS NOTE ---
DATE: 04/06/2019 SUBJECTIVE: No acute events overnight. Patient is lying comfortably in bed. Heart rate is better controlled. He has been having some low blood pressures. He has been having some decrease of the blood pressure on and off. The lowest today is 89/40. Cardiology department on board. I will hold for now the torsemide because of creatinine increase. OBJECTIVE: Vital Signs: Temperature 98.3 degrees, pulse 67, respiratory rate 23, blood pressure 108/67, oxygen saturation 98 on 2 L of nasal cannula. HEENT: Head normocephalic. No trauma. PERRLA. Neck: Supple. No JVD. No masses. Central trachea. Chest: Clear to auscultation. Some crepitus at the bases. Cardiovascular: Irregularly irregular rate and rhythm. Abdomen: Soft, nontender, nondistended. No hepatosplenomegaly. Protuberant. Extremities: No clubbing. Bilateral leg edema of 1+. He has multiple superficial wounds noted on his extremities. Also, he has a right heel ulcer. It does not look infected. Neurological Examination: The patient is alert. He is oriented. No focal deficits but generalized weakness. Laboratory: WBCs 6.5, hemoglobin 11.2, hematocrit 35.6, platelets 210,000. Sodium 135, potassium 4.5, chloride 96, bicarbonate 28, BUN 64, creatinine 3, glucose 166, calcium 9.1. ASSESSMENT AND PLAN: 1. Atrial fibrillation with rapid ventricular response. We will continue with the same management for now. Cardiology department is following this patient closely. His heart rate is better controlled. 2. History of congestive heart failure. Echocardiogram has been done. Ejection fraction is 60 to 65 percent. Also, he has pulmonary hypertension and probably diastolic dysfunction. 3. Pneumonia. Continue with levofloxacin. Continue with the same management. 4. Urinary tract infection with positive bacteria that showed Morganella morganii, sensitive to levofloxacin. 5. Right foot ulcer. Also, we have a positive culture from that area that showed Morganella morganii, sensitive to levofloxacin. We will continue with the same management. 6. Type 2 diabetes. Continue with the same treatment. Better compared with yesterday. 7. Deep vein thrombosis prophylaxis with Lovenox twice a day. 8. Gastrointestinal prophylaxis with omeprazole. 9. History of chronic obstructive pulmonary disease, not in exacerbation. 10. Sleep apnea. Continue with the same management. 11. Hypertension, stable. Actually, he has been having some low blood pressures. 12. History of coronary artery disease, status post coronary artery bypass graft. Continue with telemetry. Strict ins an outs. cc: Nomi Guillen MD
[2019-04-06] MEDS: LOVENOX SUBQ SCH (08:30)
[2019-04-06] MEDS ORDERED: D5 1/2 NS 1,000 ML IV SCH (12:30)
--- NOTE | 2019-04-06 16:27 | EKG Report ---
Test Performed on : 04/04/2019 06:51:50 AM Test Reason : chest pain Blood Pressure : / mmHG Vent. Rate : 085 BPM Atrial Rate : 122 BPM P-R Int : 000 ms QRS Dur : 094 ms QT Int : 394 ms P-R-T Axes : 000 111 -11 degrees QTc Int : 468 ms Atrial fibrillation. Left posterior fascicular block Abnormal QRS-T angle, consider primary T wave abnormality Abnormal ECG When compared with ECG of 03-APR-2019 16:58, (Unconfirmed) Vent. rate has decreased BY 49 BPM Left posterior fascicular block is now present Confirmed by Moy Garcia MD ([id number]) on 04/06/2019 4:27:56 PM
--- NOTE | 2019-04-06 19:48 | CARDIOLOGY PROGRESS NOTE ---
DATE: 04/06/2019 SUBJECTIVE: Mr. Coleman continues to be in atrial fibrillation. He is rate controlled. He is not having any palpitations. PHYSICAL EXAMINATION: Vital Signs: He is afebrile. Heart rate 74, blood pressure 111/60. Generally: He is in no acute distress. Cardiovascular: He is in an irregularly irregular rhythm. He has no murmurs. He has no S3. He has no lower extremity edema. Chest: Clear bilaterally. No increased work of breathing. Abdomen: Soft, nontender. PERTINENT DATA: Hematocrit 35.6, platelet count 210,000. Sodium 135, potassium is 4.5, BUN 64, creatinine is 3 which has trended up since the when it was 54 and 2.0. ASSESSMENT: Mr. Coleman is a 73-year-old gentleman who presented with pneumonia and atrial fibrillation. PLAN: He seems to be in acute renal insufficiency. The diuretic has been stopped. I will place him on a low dose of fluids, 1 L of fluid to be given at 100 mL an hour. I will stop the diltiazem infusion. I have decreased his Lovenox to once daily based on his GFR. cc: Hayden Lewis MD
[2019-04-06] MEDS: LEVAQUIN 750 MG/D5W 750 MG/150 ML IVPB IV SCH (21:07)
[2019-04-07] MEDS: DUONEB (A & A) INH SCH ×6 (00:02→19:38)
[2019-04-07] MEDS: LOPRESSOR PO SCH ×4 (02:16→21:51)
[2019-04-07] MEDS: ZOFRAN IV PRN (02:16)
[2019-04-07] MEDS: PERCOCET-5 PO PRN ×4 (02:19→17:25)
[2019-04-07 06:01] LABS: CREATININE 2.5 mg/dL (0.7-1.2); POTASSIUM 3.9 mmol/L (3.5-5.1)
[2019-04-07 06:02] LABS: CALCIUM 9.2 mg/dL (8.8-10.2)
[2019-04-07] MEDS: HUMULIN R SUBQ SCH ×4 (06:14→21:50)
[2019-04-07] MEDS: PRILOSEC PO SCH (06:21)
[2019-04-07] MEDS: MIRALAX PO SCH (08:55)
[2019-04-07] MEDS: EFFEXOR XR PO SCH (08:55)
[2019-04-07] MEDS: TRICOR PO SCH (08:55)
[2019-04-07] MEDS: DEMADEX PO SCH (08:55)
[2019-04-07] MEDS: SYNTHROID PO SCH (08:55)
[2019-04-07] MEDS: ZOCOR PO SCH (08:55)
[2019-04-07] MEDS: ZYLOPRIM PO SCH (08:55)
[2019-04-07] MEDS: PLAVIX PO SCH (08:55)
[2019-04-07] MEDS: MOVANTIK PO SCH (08:55)
[2019-04-07] MEDS: LOVENOX SUBQ SCH (08:56)
[2019-04-07] MEDS: LANTUS INSULIN SUBQ SCH (08:56)
--- NOTE | 2019-04-07 12:31 | PROGRESS NOTE ---
DATE: 04/07/2019 SUBJECTIVE: This patient is feeling better. He is sitting at the bedside. He has been tolerating p.o. He is not having shortness of breath or chest pain. Heart rate has been better controlled. He is not on the Cardizem drip since yesterday. I requested a Physical Therapy evaluation. He is weak, and probably he will need to go to a rehab center, but I will wait for the recommendations. OBJECTIVE: Vital Signs: Temperature 98 degrees, pulse 81, respiratory rate 17, oxygen saturation 96 on 2 L of nasal cannula. HEENT: Head normocephalic. No trauma. PERRLA. Neck: Supple. No JVD. No masses. Central trachea. Chest: Clear to auscultation. Some crepitus at the bases. Cardiovascular: Irregularly irregular rate and rhythm. Abdomen: Soft, nontender, nondistended. No hepatosplenomegaly. Protuberant. Extremities: No clubbing. Bilateral lower extremity edema 1+. He has multiple superficial wounds on his extremities. Also, he has a right heel ulcer that does not look infected. Neurological: This patient is alert. He is oriented. He is following commands, but he has generalized weakness. LABORATORY DATA: Sodium 138, potassium 3.9, chloride 99, bicarbonate 28, BUN 51, creatinine 2.5, glucose 112, calcium 9.2. ASSESSMENT AND PLAN: 1. Atrial fibrillation with rapid ventricular response, resolved, now rate controlled. Continue with the anticoagulation. Continue with the same management. Cardiology Department on board. 2. History of congestive heart failure. Echocardiogram has been done. Ejection fraction of 60% to 65%. Also has pulmonary hypertension and probably diastolic dysfunction. 3. Pneumonia. Continue with levofloxacin. I think he is getting better. 4. Urinary tract infection with positive bacteria that showed Morganella morganii, sensitive to levofloxacin. 5. Right foot ulcer with also a positive culture that showed Morganella morganii, sensitive to levofloxacin. Continue with the same treatment. 6. Type 2 diabetes, stable. 7. Deep vein thrombosis prophylaxis with Lovenox once a day due to his kidney dysfunction. 8. Gastrointestinal prophylaxis with omeprazole. 9. History of chronic obstructive pulmonary disease, not in exacerbation. 10. Sleep apnea. Continue with the same management. 11. Hypertension, stable. 12. History of coronary artery disease, status post coronary artery bypass graft. Continue with telemetry. 13. Acute on chronic kidney disease. He received some fluids yesterday. Will stop the torsemide. I will continue holding this medication until his kidney function is at baseline. cc: Nomi Guillen MD
[2019-04-07] MEDS: LEVAQUIN 750 MG/D5W 750 MG/150 ML IVPB IV SCH (21:50)
[2019-04-08] MEDS: PERCOCET-5 PO PRN ×5 (00:27→21:39)
[2019-04-08] MEDS: DUONEB (A & A) INH SCH ×5 (04:11→15:54)
[2019-04-08] MEDS: PRILOSEC PO SCH ×2 (05:48→07:51)
[2019-04-08] MEDS: LOPRESSOR PO SCH ×4 (05:49→21:20)
[2019-04-08 07:38] LABS: CALCIUM 9.3 mg/dL (8.8-10.2); CREATININE 2.2 mg/dL (0.7-1.2); POTASSIUM 3.9 mmol/L (3.5-5.1)
[2019-04-08 07:40] LABS: BASO# 0.02 X1000 (0.0-0.2); BASO% 0.3 % (0.0-0.8); EOS# 0.18 X1000 (0.0-0.7); EOS% 2.8 % (0.0-10.0); HEMATOCRIT 37.1 % (42.0-52.0); HEMOGLOBIN 11.4 g/dL (14.0-18.0); IMM GRAN# 0.02 X1000 (0.0-0.04); IMM GRAN% 0.3 % (0.0-0.5); LYMPH# 0.84 X1000 (1.2-3.4); LYMPH% 12.8 % (20.5-51.1); MCH 27.8 PG (27-31); MCHC 30.7 g/dL (33-37); MCV 90.5 FL (81-99); MONO# 0.76 X1000 (0.11-0.59); MONO% 11.6 % (1.7-9.3); MPV 12.3 FL (7.4-10.4); NEUT# 4.72 X1000 (1.4-6.5); NEUT% 72.2 % (42.2-75.2); PLT 196 X1000 (130-400); RDW 13.7 % (11.5-14.5); WBC 6.54 X1000 (4.8-10.8)
[2019-04-08] MEDS: HUMULIN R SUBQ SCH ×4 (07:52→21:39)
[2019-04-08] MEDS: MIRALAX PO SCH (10:10)
[2019-04-08] MEDS: PLAVIX PO SCH (10:11)
[2019-04-08] MEDS: ZOCOR PO SCH (10:11)
[2019-04-08] MEDS: SYNTHROID PO SCH (10:11)
[2019-04-08] MEDS: TRICOR PO SCH (10:11)
[2019-04-08] MEDS: EFFEXOR XR PO SCH (10:11)
[2019-04-08] MEDS: MOVANTIK PO SCH (10:12)
[2019-04-08] MEDS: LANTUS INSULIN SUBQ SCH (10:13)
[2019-04-08] MEDS: LOVENOX SUBQ SCH (10:13)
[2019-04-08] MEDS: ZYLOPRIM PO SCH (10:13)
--- NOTE | 2019-04-08 20:59 | PROGRESS NOTE ---
DATE: 04/08/2019 SUBJECTIVE: This patient is getting better. He has not been having shortness of breath or chest pain. He gets short of breath though with physical activity, but he has been working good with physical therapy. Hopefully, tomorrow will restart him on his diuretics. The kidney function is getting better. I will readjust medication for his atrial fibrillation and probably, I will stop the subcutaneous treatment for anticoagulation, and I will put him on p.o. treatment. I will discuss the case with Cardiology Department in the morning as well. OBJECTIVE: Vital Signs: Temperature 98.5 degrees, pulse 90, respiratory rate 20, blood pressure 108/52, oxygen saturation 95% on 2 L of nasal cannula. HEENT: Head, normocephalic, no trauma. PERRLA. Neck: Supple. No JVD. No masses. Central trachea. Chest: Clear to auscultation. Some crepitus at the bases. Cardiovascular: Irregularly irregular rate and rhythm. Abdomen: Soft, nontender, nondistended. No hepatosplenomegaly. Protuberant. Extremities: No clubbing. Bilateral lower extremity edema 1+. He has multiple superficial wounds on his extremities. Also, he has a right heel ulcer that does not look infected. Neurological: The patient is alert. He is oriented. He is following commands, but he has some generalized weakness. LABORATORY: WBC 6.5, hemoglobin 11.4, hematocrit 37.1, platelets 196,000. Sodium 141, potassium 3.9, chloride 99, bicarbonate 32, BUN 49, creatinine 2.2, glucose 77, calcium 9.3. ASSESSMENT AND PLAN: 1. Atrial fibrillation with rapid ventricular response, resolved, now rate controlled. Continue with anticoagulation. Continue with same management. Cardiology on board. 2. History of congestive heart failure, likely diastolic, ejection fraction 60% to 65%, and pulmonary hypertension. 3. Pneumonia. Continue with levofloxacin. He looks better. 4. Urinary tract infection with positive bacteria that showed Morganella morganii sensitive to levofloxacin. 5. Right foot ulcer with positive culture that showed Morganella morganii sensitive to levofloxacin. Continue with same treatment. 6. Type 2 diabetes, stable. 7. Deep vein thrombosis prophylaxis with Lovenox once a day due to his kidney dysfunction. 8. Gastrointestinal prophylaxis with omeprazole. 9. History of chronic obstructive pulmonary disease, not in exacerbation. 10. Sleep apnea. Continue with same management. 11. Hypertension. Stable. 12. History of coronary artery disease, status post coronary artery bypass graft. Continue with telemetry. Cardiology on board. He is not complaining of chest pain. 13. Acute on chronic kidney disease. He received some fluids a couple of days ago. I have been holding the torsemide. Probably, we will restart the treatment in the morning depending on his BUN and creatinine. We will readjust medications and discuss the case with Cardiology Department. cc: Nomi Guillen MD
[2019-04-08] MEDS: LEVAQUIN 750 MG/D5W 750 MG/150 ML IVPB IV SCH (21:21)
[2019-04-09] MEDS: LOPRESSOR PO SCH ×3 (01:59→21:08)
[2019-04-09] MEDS: PERCOCET-5 PO PRN ×4 (01:59→22:44)
[2019-04-09] MEDS: DUONEB (A & A) INH SCH ×6 (04:00→23:15)
[2019-04-09] MEDS ORDERED: D50W SYRINGE IV ONE (04:51)
[2019-04-09 07:20] LABS: CALCIUM 9.1 mg/dL (8.8-10.2); CREATININE 2.2 mg/dL (0.7-1.2); POTASSIUM 3.9 mmol/L (3.5-5.1)
[2019-04-09] MEDS: HUMULIN R SUBQ SCH ×4 (08:01→21:08)
[2019-04-09] MEDS: TRICOR PO SCH (11:39)
[2019-04-09] MEDS: ZOCOR PO SCH (11:39)
[2019-04-09] MEDS: PLAVIX PO SCH (11:39)
[2019-04-09] MEDS: EFFEXOR XR PO SCH (11:39)
[2019-04-09] MEDS: ZYLOPRIM PO SCH (11:39)
[2019-04-09] MEDS: MOVANTIK PO SCH (11:39)
[2019-04-09] MEDS: SYNTHROID PO SCH (11:39)
[2019-04-09] MEDS: LOVENOX SUBQ SCH (11:40)
[2019-04-09] MEDS: MIRALAX PO SCH ×2 (11:40→11:54)
[2019-04-09] MEDS: PRILOSEC PO SCH (11:46)
[2019-04-09] MEDS: LANTUS INSULIN SUBQ SCH (11:46)
--- NOTE | 2019-04-09 14:33 | CARDIOLOGY PROGRESS NOTE ---
DATE: 04/09/2019 SUBJECTIVE: Mr. Coleman denies any palpitations. Apparently, he has reached the point of potential discharge. Physical PHYSICAL EXAMINATION: Vital Signs: He is afebrile. His heart rates seem to be in the majority in the 70s to 90s. He still occasionally has some mild elevations. His blood pressure is 108/66. Most systolics appear to be in the 100s to 1 20s. General: He is in no acute distress. Cardiovascular: He sounds to be in an irregularly irregular rate controlled rhythm. He has no murmurs. No lower extremity edema. Chest: Exam is clear bilaterally. No increased work of breathing. Abdomen: Soft, nontender. PERTINENT DATA: Sodium 141, potassium is 3.9, BUN 48, creatinine 2.2 which is stable. ASSESSMENT: Mr. Coleman is a 73-year-old gentleman with atrial fibrillation that is a new presentation. PLAN: His ejection fraction is normal. His TSH was normal as well. I will change his metoprolol to [address] him on Eliquis 5 b.i.d. which would be appropriate based on his age, weight and kidney function. I have stopped the Lovenox. From my standpoint, he is okay for discharge. cc: Hayden Lewis MD
--- NOTE | 2019-04-09 20:07 | PROGRESS NOTE ---
DATE: 04/09/2019 SUBJECTIVE: This patient is feeling better, but he is complaining of generalized weakness and he would like to go to a rehab center. I instructed the nurse to call the dialysis social worker to see if this is a possibility. He is getting better. We have been adjusting his medications. I believe he is getting really close to being discharged, but he lives by himself and he does have generalized weakness. OBJECTIVE: Vital Signs: Temperature 97.8, pulse 112, respiratory rate 20, blood pressure 108/86, oxygen saturation 95% on 2 L of nasal cannula. HEENT: Head normocephalic, no trauma. PERRLA. Neck: Supple. No JVD. No masses. Central trachea. Chest: Clear to auscultation. Some crepitus at the bases. Cardiovascular: Irregularly irregular rate and rhythm. Abdomen: Soft, nontender, nondistended. No hepatosplenomegaly. Protuberant. Extremities: No clubbing. No cyanosis. He has bilateral trace lower extremity edema. He has multiple superficial wounds on his extremities. Also, he has a right heel ulcer, but it is not having any secretion. Neurological: The patient is alert. He is oriented. He is following commands. He has generalized weakness. LABORATORY: Sodium 141, potassium 3.9, chloride 101, bicarbonate 28, BUN 48, creatinine 2.2, glucose 151, calcium 9.1. ASSESSMENT AND PLAN: 1. Atrial fibrillation with rapid ventricular response, resolved, now rate control. Continue with anticoagulation, has been switched to p.o. treatment. Continue with same management. Cardiology Department evaluated this patient and they adjusted his medications. 2. History of congestive heart failure, likely diastolic. Ejection fraction 60 to 65 percent and pulmonary hypertension. I will reassume all his medications. 3. Pneumonia continue with levofloxacin. He is feeling better. 4. Urinary tract infection with positive bacteria that showed Morganella morganii, sensitive to levofloxacin. 5. Right foot ulcer with positive culture that showed Morganella morganii, sensitive to levofloxacin as well. 6. Type 2 diabetes, stable. 7. Deep vein thrombosis prophylaxis initially with Lovenox once a day and now it would be Eliquis twice a day. 8. Gastrointestinal prophylaxis with omeprazole. 9. History of chronic obstructive pulmonary disease, not in exacerbation. 10. Sleep apnea continue with same management. 11. Hypertension, stable. 12. History of coronary artery disease status post coronary artery bypass grafting. Continue with telemetry. Cardiology on board. He is not complaining of chest pain. 13. Acute on chronic kidney disease, resolved. This is likely his baseline. I have restarted his torsemide. We will continue to monitor. cc: Nomi Guillen MD
[2019-04-09] MEDS: LEVAQUIN 750 MG/D5W 750 MG/150 ML IVPB IV SCH (21:08)
[2019-04-09] MEDS: DEMADEX PO SCH (21:08)
[2019-04-09] MEDS: ELIQUIS PO SCH (21:08)
[2019-04-09] MEDS ORDERED: LOPRESSOR IV PRN (23:03)
[2019-04-10] MEDS: PERCOCET-5 PO PRN ×2 (03:19→08:30)
[2019-04-10] MEDS: DUONEB (A & A) INH SCH ×3 (03:51→11:00)
[2019-04-10] MEDS: LOPRESSOR PO SCH (04:11)
[2019-04-10] MEDS: PRILOSEC PO SCH (06:30)
[2019-04-10] MEDS: HUMULIN R SUBQ SCH (06:30)
[2019-04-10 06:36] LABS: HEMOGLOBIN 11.1 g/dL (14.0-18.0); MCH 27.8 PG (27-31); MCHC 30.8 g/dL (33-37); PLT 179 X1000 (130-400); RDW 13.6 % (11.5-14.5); WBC 4.57 X1000 (4.8-10.8)
[2019-04-10 06:37] LABS: BASO# 0.01 X1000 (0.0-0.2); BASO% 0.2 % (0.0-0.8); EOS# 0.21 X1000 (0.0-0.7); EOS% 4.6 % (0.0-10.0); IMM GRAN# 0.02 X1000 (0.0-0.04); IMM GRAN% 0.4 % (0.0-0.5); LYMPH# 1.31 X1000 (1.2-3.4); LYMPH% 28.7 % (20.5-51.1); MONO# 0.59 X1000 (0.11-0.59); MONO% 12.9 % (1.7-9.3); MPV 11.7 FL (7.4-10.4); NEUT# 2.43 X1000 (1.4-6.5); NEUT% 53.2 % (42.2-75.2)
[2019-04-10 07:00] LABS: CALCIUM 9.5 mg/dL (8.8-10.2); CREATININE 2.2 mg/dL (0.7-1.2); POTASSIUM 4.3 mmol/L (3.5-5.1)
[2019-04-10] MEDS: ZYLOPRIM PO SCH (08:32)
[2019-04-10] MEDS: DEMADEX PO SCH (08:32)
[2019-04-10] MEDS: ELIQUIS PO SCH (08:32)
[2019-04-10] MEDS: MOVANTIK PO SCH (08:32)
[2019-04-10] MEDS: EFFEXOR XR PO SCH (08:32)
[2019-04-10] MEDS: PLAVIX PO SCH (08:32)
[2019-04-10] MEDS: TRICOR PO SCH (08:33)
[2019-04-10] MEDS: SYNTHROID PO SCH (08:33)
[2019-04-10] MEDS: MIRALAX PO SCH (08:33)
[2019-04-10] MEDS: ZOCOR PO SCH (08:33)
[2019-04-10] MEDS: LANTUS INSULIN SUBQ SCH (08:40)
[2019-04-10 09:37] VITALS: BP 133/77
--- NOTE | 2019-04-10 21:25 | DISCHARGE SUMMARY ---
ADMISSION DATE: 04/03/2019 DISCHARGE DATE: 04/10/2019 DIAGNOSES: 1. Atrial fibrillation with rapid ventricular response, rate now controlled. 2. History of diastolic congestive heart failure. 3. Pulmonary hypertension. 4. Pneumonia. 5. Urinary tract infection, Morganella morganii. 6. Right foot ulcer with positive culture showing Morganella morganii. 7. Diabetes mellitus type 2. 8. Anticoagulation Eliquis. 9. Sleep apnea. 10. History of chronic obstructive pulmonary disease with no exacerbation. 11. Hypertension. 12. History of coronary artery disease status post coronary artery bypass graft. 13. Acute kidney injury on chronic kidney disease. CONSULTATIONS: Dr. Hayden Lewis, Cardiology. DIAGNOSTICS: 1. 04/03/2019 chest x-ray revealed left upper lobe pneumonia. 2. Right foot x-ray revealed no evidence of osteomyelitis, diffuse osteoporosis. 3. 04/04/2019 chest x-ray reveals no interval improvement. 4. Echocardiogram reveals ejection fraction of 60 to 65 percent. 04/06/2019 chest x-ray reveals once again no interval improvement. 5. Microbiology, blood cultures x2 revealed no growth after 5 days. 6. Urine culture revealed Morganella morganii. 7. Right foot x-ray culture reveals Morganella morganii. HOSPITAL COURSE: Mr. Coleman presented to the emergency room with weakness and shortness of breath. He was found to have left-sided pneumonia which ultimately he was found to be in atrial fibrillation with RVR. Cardiology was consulted. He was initially placed on Cardizem drip. Medications have been changed. Rate is currently controlled. He does have a history of congestive heart failure. Echocardiogram revealed EF of 60 to 65 percent with pulmonary hypertension. He was followed by Cardiology. He was found to have pneumonia on his chest x-ray. He did have Morganella morganii return and urine culture as well as right foot culture all were sensitive to Levaquin which he will be discharged on. Eliquis was started secondary to his atrial fibrillation. In regards to his chronic kidney disease this is remained stable, we have continued all his home medications. The patient was offered inpatient rehab, he refused wishing to return home and continue with [facility] as he had previously. This has been arranged by [employer] and thankfully he is ready for discharge. The patient was evaluated for home O2. He did not qualify having room air saturations of 98%. DISCHARGE PHYSICAL EXAM: Vital signs: Blood pressure is 133/77, heart rate of 86, respirations are 18, temperature 98.1 degrees oral with room air saturations 97-98%. Cardiovascular: Irregularly irregular rate and rhythm. S1 and S2 appreciated. He has bilateral trace lower extremity edema. Calves are nontender with peripheral pulses palpable times all extremities. Pulmonary: Breath sounds are clear. Chest rises and falls symmetric respiration, is no increased work of breathing noted. Gastrointestinal: Abdomen soft, nontender, nondistended with bowel sounds in all 4 quadrants. : He has no CVA or suprapubic tenderness. Skin: Is warm and dry. He does have a dressing that is dry intact to his right heel. Neurologic: He is alert and oriented x3. DISCHARGE MEDICATIONS: 1. Levaquin 500 mg p.o. daily for 6 days. 2. Eliquis 5 mg p.o. b.i.d. 3. Metoprolol 50 mg p.o. q.8 hours. 4. Zyrtec 10 mg p.o. daily. 5. Vitamin D2 50,000 units p.o. 6. Fenofibrate 145 mg daily. 7. Torsemide 20 mg p.o. b.i.d. 8. Levothyroxine 75 mcg p.o. daily. 9. Simvastatin 10 mg p.o. daily. 10. Plavix 75 mg p.o. daily. 11. Nexium 40 mg p.o. daily. 12. Movantik 25 mg p.o. q.a.m. 13. Micro-K 10 mEq p.o. daily. 14. Metolazone 5 mg as directed. 15. Glargine insulin 66 units subcu daily. 16. Humalog insulin 44 units subcu t.i.d. 17. Avodart 0.5 mg p.o. daily. 18. Allopurinol 300 mg p.o. daily. FOLLOWUP: 1. Is follow up with Dr. Hayden Lewis in 2 weeks. He needs to call the office in the morning and schedule an appointment. 2. His primary care physician he needs to call Thursday, update on hospitalization and schedule an appointment. 3. [facility] and he is to call and notify of discharge. 4. He is being discharged home in stable condition with family members. 5. He has been instructed to call to be seen sooner or return to the ER for any syncope, dizziness, chest pain, palpitations, shortness of breath, cough, temperature greater than 101, any nausea, vomiting, diarrhea, constipation, black or bloody vomitus or stools, any bleeding gums, any hematuria, any bruising or for any questions or concerns that he may He is being discharged home in stable condition with family members. TIME SPENT: Greater than 30 minutes. Dictated by JULIA Ko for Nomi Guillen MD cc: JULIA Ko MD
== END 2019-04-10 11:25 | disposition home health service (06) | DRG 308 ==
LOC: ED 14:26 → 3S 18:21 → 4N 04-07 16:49
PROVIDERS: ATTEND Internal Medicine
CPT/HCPCS: 71010; 71020; 71045; 71046; 73630; 80048; 80053; 81001; 82550; 82948; 83036; 83605; 83735; 83880; 84100; 84443; 84484; 85025; 85610; 85730; 87040; 87070; 87077; 87088; 87186; 93005; 93010; 93306; 94640; 94761; 97161; 97530; A9270; C8929; J1650; J1815; J1956; J2405; J7040; Q9957; XXXXX

== ENCOUNTER 2019-09-06 14:57 | Observation (INO) ==
--- NOTE | 2019-09-06 15:44 | Diag Imaging Result Doc PS360 ---
EXAM: CHEST-2 VIEWS HISTORY: cough TECHNIQUE: Two views COMPARISON: 04/06/2019 FINDINGS: The lungs are well expanded. The heart is not enlarged. There are sternal wires. The vessels are not distended. There are no infiltrates. No pleural effusions. IMPRESSION: No pneumonia Electronically signed by Floyd Toure 09/06/2019 3:41 PM
[2019-09-06] MEDS ORDERED: DUONEB (A & A) INH ONE (16:00)
--- NOTE | 2019-09-06 16:05 | PROVIDER DOCUMENTATION ---
HPI-General Adult - General Chief Complaint: Flu Symptoms Stated Complaint: COLD SYMPTOMS Time Seen by Provider: 09/06/19 15:23 Source: patient Allergies/Adverse Reactions: Patient Allergies Allergy/AdvReac Type Severity Reaction Status Date / Time Penicillins Allergy Mild RASH Verified 09/06/19 15:41 adhesive AdvReac Mild RASH Verified 09/06/19 15:41 Sulfa (Sulfonamide AdvReac Mild RASH Verified 09/06/19 15:41 Antibiotics) vancomycin AdvReac Mild RASH Verified 09/06/19 15:41 Home Medications: Home Medication List Medication Instructions Recorded Confirmed Last Taken Type Clopidogrel Bisulfate [Plavix] 75 mg PO QAM 03/04/18 09/06/19 Unknown History Metolazone 5 mg PO TID 03/04/18 09/06/19 03/03/18 09:00 History Simvastatin 10 mg PO DAILY 03/04/18 09/06/19 Unknown History Allopurinol 300 mg PO DAILY 04/12/18 09/06/19 Unknown History Cetirizine HCl [Zyrtec] 10 mg PO DAILY 04/12/18 04/03/19 Unknown History Dutasteride [Avodart] 0.5 mg PO DAILY 04/12/18 04/03/19 Unknown History Ergocalciferol (Vitamin D2) 50,000 unit PO Q7D 04/03/19 04/03/19 Unknown History [Vitamin D2] Esomeprazole [Nexium] 40 mg PO DAILY 04/03/19 09/06/19 Unknown History Fenofibrate Nanocrystallized 145 mg PO DAILY 04/03/19 04/03/19 Unknown History [Tricor] Levothyroxine [Synthroid] 75 mcg PO DAILY 04/03/19 04/03/19 Unknown History Potassium Chloride E.r. [Micro-K] 10 meq PO DAILY 04/03/19 09/06/19 Unknown History Apixaban [Eliquis] 5 mg PO BID #60 tab 04/10/19 09/06/19 Unknown Rx Levofloxacin [Levaquin] 500 mg PO DAILY #6 tab 04/10/19 Unknown Rx Dutasteride/Tamsulosin HCl [[place] 1 ea PO DAILY 09/06/19 09/06/19 Unknown History 0.5-0.4 mg Capsule] Insulin Aspart [Novolog Flexpen] 100 units SQ DIRECTED 09/06/19 09/06/19 Unknown History Insulin Glargine,Hum.rec.anlog 52 unit SQ BID 09/06/19 09/06/19 Unknown History [Lantus Solostar] Losartan Potassium [Cozaar] 50 mg PO DAILY 09/06/19 09/06/19 Unknown History Lubiprostone [Amitiza] 24 mcg PO DAILY 09/06/19 09/06/19 Unknown History Metoprolol Tartrate 50 mg PO TID 09/06/19 09/06/19 Unknown History Naloxegol Oxalate [Movantik] 0.5 tab PO QAM 09/06/19 09/06/19 Unknown History Ondansetron HCl [Zofran] 2 tab PO DAILY 09/06/19 09/06/19 Unknown History Oxybutynin Chloride 5 mg PO BID 09/06/19 09/06/19 Unknown History Oxycodone HCl/Acetaminophen 1 ea PO Q6H PRN PRN 09/06/19 09/06/19 Unknown History [Percocet 10-325 mg Tablet] Spironolactone 25 mg PO DAILY 09/06/19 09/06/19 Unknown History Torsemide [Demadex] 20 mg PO DAILY 09/06/19 09/06/19 Unknown History - History of Present Illness -Gen Adult Nature of Presenting Problems: Patient is a 73yo M who presents with complaints of nasal congestion, runny nose, productive cough, body aches, weakness, SOB, and chills x2 weeks. Reports he saw his PCP 1.5 weeks ago who prescribed him a Z-pack. States symptoms have not improved. Reports hx of CHF, and states he has been more SOB since symptom onset. Denies CP, abdominal pain, n/v/d. Patient is able to speak in full sentences without pause, no evidence of retractions/accessory muscle usage noted, O2 saturation 95% on RA. Location of Pain/Injury: reports: generalized Pain Radiation: reports: no radiation Quality of Pain: reports: aching Severity: reports: moderate Onset/Duration: reports: other (2 weeks ago) Timing: reports: still present Modifying Factors: improves with: nothing Associated Symptoms: reports: cough, EENT symptoms, fatigue, fever/chills, sinus congestion/drainage, shortness of breath, weakness. denies: back/neck pain, chest pain, nausea, syncope, vomiting Similar Symptoms Previously?: No Recently seen or treated by another doctor?: Yes (saw PCP 1.5 weeks ago) Review of Systems - Adult - REVIEW OF SYSTEMS - ADULT Constitutional: reports: see HPI, chills Eyes: reports: no symptoms reported Ears, Nose, Mouth & Throat: reports: see HPI, sinus problem. denies: ear pain, throat pain Cardiovascular: reports: no symptoms reported. denies: chest pain, palpitations Respiratory: reports: see HPI, cough, excessive sputum production, shortness of breath, wheezing Gastrointestinal: reports: no symptoms reported. denies: abdominal pain, nausea, vomiting Genitourinary: reports: no symptoms reported Musculoskeletal: reports: see HPI, muscle aches Integumentary: reports: no symptoms reported Neurological: reports: no symptoms reported Psychiatric: reports: no symptoms reported Endocrine: reports: no symptoms reported Past History - Adult - PAST MEDICAL HISTORY-ADULT Review of Records: reports: Nursing Assessment Review, Medications Reviewed Major Childhood Illnesses: reports: denies history Cardiovascular: reports: cardiac disease, CHF, HTN, hyperlipidemia Respiratory: reports: COPD, sleep apnea Genitourinary: reports: denies history Musculoskeletal: reports: denies history Neurological: reports: denies history Endocrine/Immune: reports: Diabetes - PRIOR SURGERIES/PROCEDURES Surgical/Procedure History: reports: CABG, hernia repair, orthopedic (extremity) , back/neck, other (cataract removal) - IMMUNIZATION STATUS Childhood Immunizations: See Nurse Assessment Flu Vaccine: See Nurse Assessment - FAMILY HISTORY Family History: reviewed, not pertinent - SOCIAL HISTORY Smoking: non-smoker Physical Exam-General - PHYSICAL EXAM-ADULT Initial Vital Signs Reviewed: Yes - CONSTITUTIONAL General Appearance: alert, mild distress. negative: lethargic, slow to respond, obtunded - EYES Eyes: PERRL/EOMI, pink conjunctivae. negative: EOM palsy - HEAD, EARS, NOSE, MOUTH & THROAT HENMT: normocephalic/atraumatic, normal ENT inspection, TMs normal, pharynx normal. negative: moist mucous membranes (dry), angioedema, pharyngeal erythema - NECK Neck: full range of motion, supple, normal inspection - RESPIRATORY Respiratory: chest non-tender, no pleuratic chest pain, no respiratory distress, no accessory muscle use, wheezing (expiratory all lung koenig). negative: crackles, rales, rhonchi, stridor, retractions, splinting, decreased rate, increased rate - CARDIOVASCULAR Cardiovascular: regular rate, rhythm, no gallop - MUSCULOSKELETAL Back Exam: normal inspection Extremity: normal range of motion - SKIN Integumentary: normal color, warm/dry. negative: cyanosis, jaundice, pallor - NEUROLOGIC Neurologic: grossly normal. negative: aphasia, EOM palsy - PSYCHIATRIC Psych/Mental Status: normal mood/affect, normal thought content, normal thought process, oriented x 3 Progress - PLAN OF CARE/RESULTS Progress/Plan/Lab Results: Vital Signs - 8 hr 09/06/19 15:17 Temperature 97.9 F Pulse Rate 78 Respiratory Rate 18 Blood Pressure 131/65 O2 Sat by Pulse Oximetry 95 Orders Category Date Time Status CHEST-2 VIEWS [RAD] Stat Exams 09/06/19 15:24 Completed CBC WITH ELECTRONIC DIFF [HEME] Stat Lab 09/06/19 16:00 Uncollected CK PROFILE [SP CHEM] Stat Lab 09/06/19 16:00 Uncollected COMPREHENSIVE METABOLIC PANEL [CHEM] Stat Lab 09/06/19 16:00 Uncollected INFLUENZA SCREEN A/B Stat Lab 09/06/19 15:36 Received PRO B-NATRIURETIC PEPTIDE Stat Lab 09/06/19 16:00 Ordered TROPONIN T Stat Lab 09/06/19 16:00 Uncollected Albuterol 2.5MG/Ipratrop 0.5MG [Duoneb (A & A)] Med 09/06/19 16:00 Discontinued 3 ml INH NOW ONE Aerosol Treatments Routine Oth 09/06/19 16:01 Active Aerosol Treatments Stat Oth 09/06/19 16:01 Active EKG [EKG] Stat Ther 09/06/19 16:00 Ordered 1722: Discussed with patient need for admission d/t acute on chronic renal failure. Patient accepts admission. Hospitalist paged. Result Diagrams: 09/06/19 16:05 09/06/19 16:05 - REASSESSMENT Reassessment #1 Time Reassessed: 16:55 Status: improving Reassessment Comment: Wheezing improved post neb - EKG 1 Time of EKG reading by physician:: 17:12 EKG Read and Signed by:: Sidney Taylor EKG Interpretation (*Must complete 3 of following elements*): Abnormal Rate: 84 Rhythm: NSR [place]: normal QRS: LBB (incomplete) [place] Interval: normal ST Wave: non-specific ST changes - XRAY 1 XRAY: Bilateral XRAY Study: Chest Impression: See EMR Report ([facility] - [address], [address], [place] [address] [facility] - [address] [place] [address] Department of Imaging Patient: DEANNA TANNER WADM Date: 09/06/19#: [id number] : 1945DM Status: PRE ERAcct#: [id number] Age/Sex: 73/MRoom/Bed: Loc: ED Ordering Physician: Nohemi Toney Family Physician: None,PCP Reason for Procedure: cough ___ Signed EXAM: CHEST-2 VIEWS HISTORY: cough TECHNIQUE: Two views COMPARISON: 04/06/2019 FINDINGS: The lungs are well expanded. The heart is not enlarged. There are sternal wires. The vessels are not distended. There are no infiltrates. No pleural effusions. IMPRESSION: No pneumonia Electronically signed by Floyd Toure 09/06/2019 3:41 PM 09/06/19 154 Interpreting Physician: Floyd Toure MD Dictated Date/Time: 09/06/19 154 cc: Nohemi Toney; None,PCP) - CONSULTS/PCP/HOSPITALIST Notification #1 *Consult/PCP/Hospitalist*: Kaley Rosario - Time Discussed: 17:27 Reason/Comments: ARF; SOB; weakness Consult Disposition: Admit Departure - Departure Date of Disposition Decision: 09/06/19 Time of Disposition Decision: 17:27 DIAGNOSIS: Generalized weakness, Shortness of breath Acute on chronic renal failure Qualifiers: Acute renal failure type: unspecified Chronic kidney disease stage: unspecified stage Qualified Code(s): N17.9 - Acute kidney failure, unspecified Disposition: ADMITTED INPATIENT 09 Certified Medical Emergency: Emergent Condition: Stable Referrals and Follow-Ups: None,PCP [Primary Care Provider] - - Critical Care Note This patient required my direct & personal management of CC.: No Attestation - Physician/ LILLIAN Attestation Patient care was provided by Advanced Practice Provider:: Yes Advanced Practice Provider:: Melanie Storey Advanced Practice Provider documentation review:: The Mid-level provider docume ntation, treatment plan and medical decision making was reviewed by the physician who agrees with all treatment and medical decision making by the MLP. The physician spent face to face time with patient:: No Advanced Practice Provider documentation review:: Supervising physician onsite and consulted in the evaluation and care of this patient. The physician did not have a face to face encounter with the patient.
[2019-09-06 16:45] LABS: BASO# 0.02 X1000 (0.0-0.2); BASO% 0.3 % (0.0-0.8); EOS# 0.17 X1000 (0.0-0.7); EOS% 2.4 % (0.0-10.0); HEMATOCRIT 45.4 % (42.0-52.0); HEMOGLOBIN 14.3 g/dL (14.0-18.0); IMM GRAN# 0.03 X1000 (0.0-0.04); IMM GRAN% 0.4 % (0.0-0.5); LYMPH# 2.35 X1000 (1.2-3.4); LYMPH% 32.8 % (20.5-51.1); MCH 27.2 PG (27-31); MCHC 31.5 g/dL (33-37); MCV 86.5 FL (81-99); MONO# 0.91 X1000 (0.11-0.59); MONO% 12.7 % (1.7-9.3); MPV 11.8 FL (7.4-10.4); NEUT# 3.68 X1000 (1.4-6.5); NEUT% 51.4 % (42.2-75.2); PLT 341 X1000 (130-400); RBC 5.25 XMIL (4.7-6.1); WBC 7.16 X1000 (4.8-10.8)
[2019-09-06 17:10] LABS: ALB/GLOB RATIO 1.3; ALBUMIN 4.7 g/dL (3.5-5.0); CALCIUM 10.1 mg/dL (8.8-10.2); POTASSIUM 4.2 mmol/L (3.5-5.1); TOTAL BILIRUBIN 0.22 mg/dL (0.20-1.00); TOTAL PROTEIN 8.4 g/dL (6.3-8.3)
[2019-09-06] MEDS ORDERED: ZOFRAN IV PRN (18:27)
[2019-09-06] MEDS ORDERED: TYLENOL PO PRN (18:27)
[2019-09-06] MEDS ORDERED: NS 1,000 ML IV SCH (18:30)
[2019-09-06] MEDS ORDERED: D50W SYRINGE IV ONE (18:52)
[2019-09-06 19:00] LABS: URINE SOURCE CLEAN CATCH
[2019-09-06 19:04] LABS: BILIRUBIN URINE NEGATIVE (NEGATIVE); BLOOD URINE NEGATIVE (NEGATIVE); COLOR YELLOW; GLUCOSE URINE 100 mg/dL (NEGATIVE); KETONE URINE NEGATIVE (NEGATIVE); LEUKOCYTES URINE NEGATIVE (NEGATIVE); NITRITE URINE NEGATIVE (NEGATIVE); PH URINE 5.5; PROTEIN URINE NEGATIVE (NEGATIVE); SP GRAVITY URINE 1.012; TURBIDITY URINE CLEAR (CLEAR); UR EPITHELIAL CELLS <10 /HPF (<10); URINE BACTERIA NEGATIVE /HPF; URINE RBC <10 /HPF (<10); URINE WBC <10 /HPF (<10); UROBILINOGEN URINE NORMAL (NORMAL)
[2019-09-06 19:53] LABS: UR CREAT RANDOM 53.6 mg/dL (14-26); UR PROT RANDOM 10.3 mg/dL
--- NOTE | 2019-09-06 20:34 | EKG Report ---
Test Performed on : 09/06/2019 6:56:59 PM Test Reason : 2hr Repeat Blood Pressure : / mmHG Vent. Rate : 083 BPM Atrial Rate : 083 BPM P-R Int : 196 ms QRS Dur : 108 ms QT Int : 394 ms P-R-T Axes : 036 098 -09 degrees QTc Int : 462 ms Normal sinus rhythm. Rightward axis T wave abnormality, consider inferior ischemia Abnormal ECG When compared with ECG of 06-SEP-2019 17:13, (Unconfirmed) Previous ECG has undetermined rhythm, needs review Unconfirmed Result
--- NOTE | 2019-09-06 20:34 | EKG Report ---
Test Performed on : 09/06/2019 5:12:49 PM Test Reason : SOB Blood Pressure : / mmHG Vent. Rate : 084 BPM Atrial Rate : 084 BPM P-R Int : 166 ms QRS Dur : 112 ms QT Int : 382 ms P-R-T Axes : 005 086 003 degrees QTc Int : 451 ms Normal sinus rhythm. Incomplete left bundle branch block T wave abnormality, consider inferior ischemia Abnormal ECG When compared with ECG of 04-APR-2019 06:51, Sinus rhythm. has replaced Atrial fibrillation. T wave amplitude has increased in Anterior leads Unconfirmed Result
[2019-09-06] MEDS: HUMULIN R SUBQ SCH ×2 (20:56→23:59)
[2019-09-06] MEDS: ELIQUIS PO SCH (21:29)
--- NOTE | 2019-09-07 01:45 | HISTORY AND PHYSICAL ---
PRIMARY CARE PROVIDER: Pablo Fonseca MD, out of [place]. CHIEF COMPLAINT: "I have a cold." HISTORY OF PRESENT ILLNESS: Mr. Coleman is a 73-year-old male with a past medical history of atrial fibrillation; diastolic heart failure; pulmonary hypertension; diabetes mellitus; sleep apnea, on BiPAP; COPD; hypertension; coronary artery disease, status post CABG; chronic kidney disease. He reported over a week ago he had gone to seen his primary care provider, was given a Z- Jose without any improvement. He reports sore throat, chills, nausea, productive cough with a whitish sputum, shortness of breath, no appetite. He has not been drinking much lately due to his sore throat. He denies any wheezes. No chest pain. No palpitations. No diarrhea. No constipation. Workup in the ED was essentially unremarkable. There is no pneumonia, no CHF exacerbation, no COPD exacerbation. He does have an acute kidney injury. We will check him for streptococcus. He does look clinically dehydrated, so we will admit him overnight in observation status and continue with IV hydration. PAST MEDICAL HISTORY: Atrial fibrillation; diastolic heart failure; pulmonary hypertension; diabetes mellitus; sleep apnea, on BiPAP; COPD; hypertension; coronary artery disease; chronic kidney disease. PAST SURGICAL HISTORY: Coronary artery bypass; bilateral cataract surgery; hernia repair; low back surgery; leg surgery secondary to traumatic fracture of the femur, tibia and fibula; right wrist surgery secondary to fracture; bilateral endarterectomy. FAMILY HISTORY: Mother positive for passing away due to meningitis when he was 9 months old. Father of a IA at the age of 57. Brother with diabetes and a sister with arthritis who gets frequent pancreatitis. SOCIAL HISTORY: He lives in [place]. He is retired from the [employer]. He is disabled. He lives alone. No alcohol, tobacco or illicit drug use. ALLERGIES: Penicillin, vancomycin, sulfa, adhesive tape and steroids. HOME MEDICATIONS: Per NOV. REVIEW OF SYSTEMS: Completely negative except for mentioned in HPI. PHYSICAL EXAMINATION: VITAL SIGNS: Temperature is 97.9 degrees, heart rate 90, respirations 16, blood pressure 186/84, O2 is 96% on room air. GENERAL: Mr. Coleman is a 73-year-old male who is sitting up in a wheelchair in [facility], in no acute distress. HEENT: Atraumatic, normocephalic. PERRL. NECK: Supple. Trachea midline. CARDIOVASCULAR: S1, S2 appreciated. No murmurs, gallops or rubs noted. RESPIRATORY: Lung sounds clear bilaterally. GASTROINTESTINAL: Soft, nontender, nondistended. Positive bowel sounds x4 quadrants. EXTREMITIES: Lower extremities were negative for edema. NEUROLOGIC: No focal deficits noted. DIAGNOSTIC DATA: Chest x-ray: No pneumonia. LABORATORY DATA: White count 7, hemoglobin and hematocrit 14 and 45, platelet count 341,000. Sodium 140, potassium 4.2, BUN 106, creatinine 3.0, blood glucose 71. Troponin 0.020. Flu A and B negative. Direct Strep pending. ASSESSMENT AND PLAN: 1. Acute kidney injury on chronic kidney disease. We will initiate the patient on intravenous fluids. We will hydrate him overnight secondary to clinical dehydration due to decreased p.o. intake. We will recheck his renal function in the a.m. as well as send off some urinalysis labs and check a renal profile in the a.m. 2. Sore throat. We will rule out strep throat with a Direct Strep. 3. Clinical dehydration. We will continue with intravenous fluids overnight. 4. Atrial fibrillation history. Aware. 5. Diabetes mellitus type 2. We will continue on diabetic diet. 6. Chronic obstructive pulmonary disease without exacerbation. 7. Coronary artery disease, status post coronary artery bypass graft. The patient is not complaining of any chest pain. 8. Hypertension. 9. Further recommendations to follow physician evaluation, laboratory and diagnostic data. Dictated by JULIA Martinez for Mounika Poon MD cc: Mounika Poon MD I performed a face to face encounter on the patient. I reviewed all labs and imaging on the patient. I agree with the H&P as dictated. is a 73 year old male with a history of mulitple medical problems who presented to the ER with a chief complaint of shortness of breath, general malaise, and cough. On exam, the patient was noted to be alert and oriented x 4. His breath sounds were clear to auscultation bilaterally. No peripheral edema was noted. The patient was noted to be dehydrated with acute on chronic kidney injury. Will order blood and sputum cultures and start the patient on IV fluids, bronchodilator therapy and supplemental oxygen. [facility]
[2019-09-07] MEDS: PERCOCET-10 PO PRN ×3 (02:03→20:30)
[2019-09-07] MEDS: HUMULIN R SUBQ SCH ×4 (06:10→21:58)
[2019-09-07] MEDS: PRILOSEC PO SCH (06:14)
[2019-09-07 07:36] LABS: HEMOGLOBIN 13.8 g/dL (14.0-18.0); MCH 27.8 PG (27-31); MCHC 31.4 g/dL (33-37); MCV 88.5 FL (81-99); MPV 11.9 FL (7.4-10.4); RBC 4.97 XMIL (4.7-6.1); RDW 14.2 % (11.5-14.5); WBC 6.08 X1000 (4.8-10.8)
[2019-09-07 08:00] LABS: ALBUMIN 4.5 g/dL (3.5-5.0); CALCIUM 9.7 mg/dL (8.8-10.2); CREATININE 2.5 mg/dL (0.7-1.2); PHOSPHORUS 3.8 mg/dL (2.7-4.5); POTASSIUM 3.9 mmol/L (3.5-5.1)
[2019-09-07] MEDS: PLAVIX PO SCH (10:01)
[2019-09-07] MEDS: ELIQUIS PO SCH ×2 (10:01→21:58)
[2019-09-07] MEDS: LANTUS INSULIN SUBQ SCH ×3 (10:01→21:59)
[2019-09-07] MEDS ORDERED: MUCINEX DM PO ONE (13:49)
[2019-09-07] MEDS ORDERED: NS NEB INH SCH (14:00)
[2019-09-07] MEDS: NS 1,000 ML IV SCH ×2 (14:44→19:23)
[2019-09-07] MEDS: XOPENEX NEB INH SCH ×2 (16:02→19:14)
[2019-09-07] MEDS: MUCOMYST 20% INH SCH ×2 (16:04→19:14)
[2019-09-07] MEDS ORDERED: LEVAQUIN PO ONE (17:37)
--- NOTE | 2019-09-07 20:26 | PROGRESS NOTE ---
DATE: 09/07/2019 SUBJECTIVE: The patient is sitting up at the edge of the bed eating lunch. He states that he has a mild cough but otherwise states that he feels better. OBJECTIVE: Vital Signs: Temperature 98.3 degrees, blood pressure 129/51, heart rate 72, respirations 18, O2 saturations 100% on 2 L nasal cannula. General: This is a morbidly obese male sitting at the edge of the bed in no acute distress. Heart: S1, S2 normal. Regular rate and rhythm. Lungs: Equal air entry bilaterally. No wheezing. No rales. Abdomen: Positive. Bowel sounds soft, nontender, nondistended. Extremities: No edema, no cyanosis. Neurologic: The patient is alert and oriented x3. LABORATORY DATA: White blood cell count 6, hemoglobin 13, platelets 257,000, sodium 139, potassium 3.9, chloride 95, CO2 32, BUN 93, creatinine 2.5, glucose 159. ASSESSMENT AND PLAN: 1. Acute kidney injury on chronic kidney disease, likely secondary to volume depletion. Improved. We will continue with IV fluids. We will likely discontinue this tomorrow because the patient will be close to his baseline renal function. 2. Paroxysmal atrial fibrillation. The patient is rate controlled. Continue on the current cardiac medications. 3. Chronic obstructive pulmonary disease. Stable. 4. Coronary artery disease. Continue on the current cardiac medications. 5. Hypothyroidism. Continue on Synthroid. 6. Obstructive sleep apnea. Continue with the CPAP at night. 7. Insulin-dependent diabetes mellitus. Continue on Lantus 52 units subcutaneous twice a day plus sliding scale insulin. 8. Hyperlipidemia. Continue on simvastatin. DISPOSITION: The patient should be stable for discharge home tomorrow. cc: Mounika Poon MD [facility]
[2019-09-07] MEDS: MOVANTIK PO SCH (21:58)
[2019-09-08] MEDS: PERCOCET-10 PO PRN ×3 (02:36→20:11)
[2019-09-08] MEDS: NS 1,000 ML IV SCH (05:58)
[2019-09-08] MEDS: MOVANTIK PO SCH (06:05)
[2019-09-08] MEDS: PRILOSEC PO SCH (06:05)
[2019-09-08] MEDS: SYNTHROID PO SCH (06:05)
[2019-09-08] MEDS: HUMULIN R SUBQ SCH ×4 (06:06→20:12)
[2019-09-08 08:25] LABS: ALBUMIN 3.9 g/dL (3.5-5.0); CALCIUM 9.2 mg/dL (8.8-10.2); CREATININE 2.2 mg/dL (0.7-1.2); POTASSIUM 3.9 mmol/L (3.5-5.1)
[2019-09-08] MEDS: PLAVIX PO SCH (09:40)
[2019-09-08] MEDS: ELIQUIS PO SCH ×2 (09:41→20:11)
[2019-09-08] MEDS: LANTUS INSULIN SUBQ SCH ×2 (09:41→20:15)
[2019-09-08] MEDS: XOPENEX NEB INH SCH ×3 (11:36→22:35)
[2019-09-08] MEDS: MUCOMYST 20% INH SCH ×2 (11:37→22:35)
[2019-09-08 12:20] LABS: BASO# 0.03 X1000 (0.0-0.2); BASO% 0.6 % (0.0-0.8); EOS# 0.18 X1000 (0.0-0.7); EOS% 3.8 % (0.0-10.0); HEMATOCRIT 40.4 % (42.0-52.0); HEMOGLOBIN 12.5 g/dL (14.0-18.0); IMM GRAN# 0.02 X1000 (0.0-0.04); IMM GRAN% 0.4 % (0.0-0.5); LYMPH# 1.65 X1000 (1.2-3.4); LYMPH% 34.9 % (20.5-51.1); MCHC 30.9 g/dL (33-37); MCV 90.6 FL (81-99); MONO# 0.46 X1000 (0.11-0.59); MONO% 9.7 % (1.7-9.3); NEUT# 2.39 X1000 (1.4-6.5); NEUT% 50.6 % (42.2-75.2); PLT 220 X1000 (130-400); RBC 4.46 XMIL (4.7-6.1); RDW 14.1 % (11.5-14.5); WBC 4.73 X1000 (4.8-10.8)
--- NOTE | 2019-09-08 12:39 | Diag Imaging Result Doc PS360 ---
EXAM: CT THORAX W/O CONTRAST INDICATION: Dyspnea TECHNIQUE: This exam was performed using automated exposure control, adjustment of mA or kV according to patient size, and/or use of iterative reconstruction technique. COMPARISON: 03/04/2018 FINDINGS: There is linear interstitial thickening at both lung bases, mainly in the lower lobes and milder involvement of the right middle lobe. There is also a small linear density at the anterior right upper lobe and in the lingula. This is all stable suggesting fibrosis. No new consolidations are identified. There is no pleural fluid collection and no pneumothorax. 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 There is patchy aortic atherosclerotic calcification. There is no evidence of significant mediastinal or hilar lymphadenopathy. Limited views of the upper abdomen reveal a few able layering calcified stones in the gallbladder lumen. There are degenerative changes throughout the thoracic spine. IMPRESSION: Stable fibrotic changes with a basilar predominance. No definite acute chest pathology by CT. Electronically signed by Alex De La Fuente 09/08/2019 12:37 PM
[2019-09-08] MEDS: AZACTAM 0.5 GM in NS 50 ML IV SCH ×2 (14:48→20:11)
--- NOTE | 2019-09-08 20:12 | PROGRESS NOTE ---
DATE: 09/08/2019 SUBJECTIVE: The patient is resting comfortably. He states that he still does not feel well. He complains of some chest congestion. OBJECTIVE: Vital Signs: Temperature 97.4 degrees, blood pressure 155/63, heart rate 97, respirations 18. O2 saturation is 97% on room air. General: This is an elderly male sitting at the edge of the bed in no acute distress. Heart: S1, S2 normal. Regular rate and rhythm. Lungs: Equal air entry bilaterally. No wheezing. No rales. No rhonchi. Abdomen: Positive bowel sounds, soft, nontender, nondistended. Extremities: No edema, no cyanosis, no calf tenderness. Neurologic: The patient is alert and oriented x3. LABORATORIES: White blood cell count 4.7, hemoglobin 12, hematocrit 40, platelets 220,000. Sodium 143, potassium 3.9, chloride 102, CO2 27, BUN 59, creatinine 2.2, glucose 126. IMAGING: CT of the chest reveals stable fibrotic changes. ASSESSMENT AND PLAN: 1. Acute kidney injury on chronic kidney disease. Improved. The patient is approaching his baseline. We will continue to avoid nephrotoxic agents. 2. Paroxysmal atrial fibrillation. The patient is currently rate-controlled. Continue on the current cardiac medications. 3. Chronic obstructive pulmonary disease. Stable. 4. Hypothyroidism. Continue on Synthroid. 5. Cold symptoms. Slowly improving. Continue with bronchodilator therapy. 6. Insulin-dependent diabetes mellitus, poorly controlled. Continue on Lantus twice a day plus sliding scale insulin. 7. Coronary artery disease. Continue on the current cardiac medications. 8. Disposition. The patient should be stable for discharge home tomorrow. cc: Mounika Poon MD
[2019-09-09] MEDS: PERCOCET-10 PO PRN ×2 (03:08→10:21)
[2019-09-09] MEDS: MOVANTIK PO SCH ×2 (05:50→09:06)
[2019-09-09] MEDS: SYNTHROID PO SCH ×2 (05:50→09:07)
[2019-09-09] MEDS: PRILOSEC PO SCH ×2 (05:50→09:07)
[2019-09-09] MEDS: AZACTAM 0.5 GM in NS 50 ML IV SCH ×2 (05:51→12:44)
[2019-09-09] MEDS: HUMULIN R SUBQ SCH ×2 (06:34→11:05)
[2019-09-09 08:07] LABS: HEMATOCRIT 40.3 % (42.0-52.0); HEMOGLOBIN 12.3 g/dL (14.0-18.0); MCH 27.5 PG (27-31); MCHC 30.5 g/dL (33-37); MCV 90.2 FL (81-99); RBC 4.47 XMIL (4.7-6.1); RDW 13.9 % (11.5-14.5); WBC 4.69 X1000 (4.8-10.8)
[2019-09-09 08:29] LABS: ALBUMIN 4.2 g/dL (3.5-5.0); CALCIUM 9.6 mg/dL (8.8-10.2); CREATININE 1.9 mg/dL (0.7-1.2); PHOSPHORUS 2.4 mg/dL (2.7-4.5); POTASSIUM 4.2 mmol/L (3.5-5.1)
[2019-09-09] MEDS: PLAVIX PO SCH (09:07)
[2019-09-09] MEDS: LANTUS INSULIN SUBQ SCH (09:07)
[2019-09-09] MEDS: ELIQUIS PO SCH (09:07)
[2019-09-09] MEDS: XOPENEX NEB INH SCH (10:00)
[2019-09-09] MEDS: MUCOMYST 20% INH SCH (11:00)
[2019-09-09 11:15] VITALS: BP 161/65
--- NOTE | 2019-09-18 20:58 | DISCHARGE SUMMARY ---
ADMISSION DATE: 09/06/2019 DISCHARGE DATE: 09/09/2019 FINAL DISCHARGE DIAGNOSES: 1. Acute kidney injury on chronic kidney disease. 2. Paroxysmal atrial fibrillation. 3. Chronic obstructive pulmonary disease. 4. Hypothyroidism. 5. Cold symptoms. 6. Poorly controlled insulin-dependent diabetes mellitus. 7. Morbid obesity. 8. Coronary artery disease. HOSPITAL COURSE: Mr. Coleman is a 73-year-old male with a history of multiple medical problems who presented to the ER with cold symptoms. On admission a chest x-ray was done that did not reveal anything acute. The patient was noted to be dehydrated on admission with a BUN of 106 and a creatinine of 3. The patient was admitted and started on IV fluids, bronchodilator therapy, and admitted on telemetry. The patient's home medications were restarted with the exception of nephrotoxic agents. The patient slowly improved over the course of the hospitalization. His BUN and creatinine on the day of discharge were noted to be 39 and 1.9, which were his baseline. The patient was ultimately cleared for discharge home. DISCHARGE MEDICATIONS: 1. Simvastatin 10 mg p.o. daily. 2. Plavix 75 mg p.o. daily. 3. Metolazone 5 mg oral 1 tablet 3 days a week. 4. Zyrtec 10 mg oral daily. 5. Allopurinol 300 mg p.o. daily. 6. Avodart 0.5 mg oral daily. 7. Vitamin D2 15330 units oral every 7 days. 8. Tricor 145 mg oral daily. 9. Nexium 40 mg p.o. daily. 10. Synthroid 75 mcg oral daily. 11. Potassium chloride 10 mEq oral daily. 12. Eliquis 5 mg oral twice a day. 13. Lantus 52 units subcutaneous twice a day. 14. Amitiza 24 mcg oral daily. 15. Metoprolol 50 mg oral 3 times a day. 16. Movantik 25 mg oral every morning. 17. Percocet 10/325 one tab oral every 6 hours p.r.n. 18. Aldactone 25 mg oral daily. 19. Furosemide 20 mg p.o. daily. 20. Oxybutynin 5 mg oral twice a day. 21. Losartan 50 mg p.o. daily. DISCHARGE DIET: 1800 ADA diet, low-sodium diet. ACTIVITY: As tolerated. FOLLOWUP INSTRUCTIONS: The patient will need to follow up with his primary care physician in one week. Amado#: [id number] cc: Mounika Poon MD
== END 2019-09-09 14:05 | disposition home or self-care (01) ==
LOC: ED 14:57 → 3N 14:57
PROVIDERS: ATTEND Internal Medicine